=== PATIENT | male | born 1950 | race Caucasian/White ===

== ENCOUNTER 2018-09-12 13:44 | Observation (INO) | payer MEDICARE ==
--- NOTE | 2018-09-12 14:43 | ER Document Report ---
ED Medical Screen (RME) - General Chief Complaint: Rectal Bleeding Stated Complaint: ABNORMAL BOWEL MOVEMENTS Time Seen by Provider: 09/12/18 14:25 Notes: Patient is a 67-year-old male presents to the emergency department for 3 episodes of bright red blood from his rectum. Patient states he is never had this issue before. States he typically drinks 4 beers a day. Patient is denying any abdominal pain, lightheadedness, weakness, dizziness. GENERAL: Alert, interacts well. No acute distress. ABDOMEN: Soft, non-tender. Non-distended. Bowel sounds present in all 4 quadrants. I have greeted and performed a rapid initial assessment of this patient. A comprehensive ED assessment and evaluation of the patient, analysis of test results and completion of the medical decision making process will be conducted by additional ED providers. This medical record was dictated with voice recognizing software. There may be grammatical, syntax errors that are unintended. TRAVEL OUTSIDE OF THE [place] IN LAST 30 DAYS: No - Related Data Allergies/Adverse Reactions: Penicillins Allergy (Verified 09/12/18 14:19) Past Medical History - Social History Frequency of alcohol use: 4 beers per daily Drug Abuse: None Renal/ Medical History: Denies: Hx Peritoneal Dialysis Physical Exam - Vital signs Vitals: Temp Pulse Resp BP Pulse Ox 97.6 F 98 16 137/88 H 97 09/12/18 13:56 09/12/18 13:56 09/12/18 13:56 09/12/18 13:56 09/12/18 13:56 Course - Vital Signs Vital signs: Temp Pulse Resp BP Pulse Ox 97.6 F 98 16 137/88 H 97 09/12/18 13:56 09/12/18 13:56 09/12/18 13:56 09/12/18 13:56 09/12/18 13:56
[2018-09-12 16:21] LABS: ABSOLUTE EOSINOPHILS # (AUTO) 0.1 10^3/uL (0.0-0.6); ABSOLUTE LYMPHOCYTES (AUTO) 1.4 10^3/uL (0.5-4.7); ABSOLUTE MONOCYTES (AUTO) 0.8 10^3/uL (0.1-1.4); ABSOLUTE NEUT (AUTO) 6.1 10^3/uL (1.7-8.2); BASOPHILS % (AUTO) 0.5 % (0-2); EOSINOPHILS % (AUTO) 1.5 % (0-6); HEMATOCRIT 36.7 % (37.9-51.0); HEMOGLOBIN 12.5 g/dL (13.5-17.0); LYMPHOCYTES % (AUTO) 16.9 % (13-45); MEAN CORPUSCULAR HEMOGLOBIN 30.4 pg (27.0-33.4); MEAN CORPUSCULAR HGB CONC 33.9 g/dL (32.0-36.0); MEAN CORPUSCULAR VOLUME 90 fl (80-97); MONOCYTES % (AUTO) 9.4 % (3-13); PLATELET COUNT 224 10^3/uL (150-450); RED BLOOD COUNT 4.09 10^6/uL (4.35-5.55); RED CELL DISTRIBUTION WIDTH 13.6 % (11.5-14.0); SEGMENTED NEUTROPHILS % (AUTO) 71.7 % (42-78); TOTAL CELLS COUNTED % (AUTO) 100 %; WHITE BLOOD COUNT 8.6 10^3/uL (4.0-10.5)
[2018-09-12 16:24] LABS: PROTHROMBIN TIME 13.7 SEC (11.4-15.4)
[2018-09-12 16:25] LABS: PARTIAL THROMBOPLASTIN TIME 27.9 SEC (23.5-35.8)
[2018-09-12 16:40] LABS: ALANINE AMINOTRANSFERASE 20 U/L (21-72); ALBUMIN 4.1 g/dL (3.5-5.0); ALKALINE PHOSPHATASE 87 U/L (38-126); ANION GAP 8 (5-19); ASPARTATE AMINO TRANSFERASE 21 U/L (17-59); BILIRUBIN,DIRECT 0.3 mg/dL (0.0-0.4); BILIRUBIN,TOTAL 0.7 mg/dL (0.2-1.3); BLOOD UREA NITROGEN 18 mg/dL (7-20); CALCIUM 9.6 mg/dL (8.4-10.2); CARBON DIOXIDE 22 mmol/L (22-30); CHLORIDE 108 mmol/L (98-107); GLUCOSE 86 mg/dL (75-110); POTASSIUM 4.2 mmol/L (3.6-5.0); TOTAL PROTEIN 6.6 g/dL (6.3-8.2)
[2018-09-12] MEDS ORDERED: IPRATROPIUM/ALBUTEROL 0.5-2.5 MG/3 ML AMPUL NEB PRN (19:22)
[2018-09-12] MEDS ORDERED: ONDANSETRON HCL INJ/PF 4 MG/2 ML SDV IV PRN (19:22)
--- NOTE | 2018-09-12 19:22 | ER Document Report ---
ED General - General Chief Complaint: Rectal Bleeding Stated Complaint: ABNORMAL BOWEL MOVEMENTS Time Seen by Provider: 09/12/18 14:25 Notes: Patient is a 67-year-old male without chronic medical problems, does not have a primary care doctor, has not completed routine health screenings who presents with bright red blood per rectum. Patient states that when he woke up this morning he had a small bloody bowel movement, did not think much of it and went to work. States that while he was at work he had several bloody bowel movements becoming increasingly large in volume. He states that these were effectively purely bright red blood without any stool mixed within the bowel movement. States he had associated abdominal cramping that was generalized and constant in nature but has somewhat abated since that time. He denies any history of GI bleed in the past. Does not take any form of anticoagulation. Nothing is been noted to improve or worsen his symptoms since onset. Last bowel movement was approximately 4 hours prior to arrival. TRAVEL OUTSIDE OF THE [place] IN LAST 30 DAYS: No - Related Data Allergies/Adverse Reactions: Penicillins Allergy (Verified 09/12/18 14:19) Past Medical History - General Information source: Patient - Social History Smoking Status: Current Every Day Smoker Frequency of alcohol use: 4 beers per daily Drug Abuse: None Family History: Reviewed & Not Pertinent Patient has suicidal ideation: No Patient has homicidal ideation: No Renal/ Medical History: Denies: Hx Peritoneal Dialysis Review of Systems - Review of Systems Notes: Constitutional: Negative for fever. HENT: Negative for sore throat. Eyes: Negative for visual changes. Cardiovascular: Negative for chest pain. Respiratory: Negative for shortness of breath. Gastrointestinal: Positive for abdominal cramping, hematochezia Genitourinary: Negative for dysuria. Musculoskeletal: Negative for back pain. Skin: Negative for rash. Neurological: Negative for headaches, weakness or numbness. 10 point ROS negative except as marked above and in HPI. Physical Exam - Vital signs Vitals: Temp Pulse Resp BP Pulse Ox 97.6 F 98 16 137/88 H 97 09/12/18 13:56 09/12/18 13:56 09/12/18 13:56 09/12/18 13:56 09/12/18 13:56 Interpretation: Normal Notes: PHYSICAL EXAMINATION: GENERAL: Well-appearing, well-nourished and in no acute distress. HEAD: Atraumatic, normocephalic. EYES: Pupils equal round and reactive to light, extraocular movements intact, sclera anicteric, conjunctiva are normal. ENT: nares patent, oropharynx clear without exudates. Moist mucous membranes. NECK: Normal range of motion, supple without lymphadenopathy LUNGS: Breath sounds clear to auscultation bilaterally and equal. No wheezes rales or rhonchi. HEART: Regular rate and rhythm without murmurs ABDOMEN: Soft, nontender, normoactive bowel sounds. No guarding, no rebound. No masses appreciated. Rectal: Bright red blood on digital rectal exam EXTREMITIES: Normal range of motion, no pitting or edema. No cyanosis. NEUROLOGICAL: No focal neurological deficits. Moves all extremities spontaneously and on command. PSYCH: Normal mood, normal affect. SKIN: Warm, Dry, normal turgor, no rashes or lesions noted. Course - Re-evaluation Re-evalutation: 09/12/18 19:17 Patient presents with bright red blood per rectum for total large volume bloody bowel movements today. On rectal exam the patient continues to have bright red blood on digital rectal examination. No melena. The patient has no focal abdominal tenderness, has not had any vomiting and no hematemesis. Does not take any form of anti-regulation but is never had a colonoscopy in the past. Does not use any form of anti-coagulation. Initial blood counts are mildly low at 12.5 although patient has no history of anemia. However given the patient does still have bright red blood on digital rectal examination I do not feel comfortable discharging him home particular given that he reports at least 5 large bloody bowel movements today and his hemoglobin may not have accommodated yet to the blood loss. Moreover the patient does not have a primary care physician, no way to truly follow-up as an outpatient. 09/12/18 19:22 I discussed with who has accepted patient to ICU. Patient has been placed on monitor. Consult placed for for colonoscopy. - Vital Signs Vital signs: Temp Pulse Resp BP Pulse Ox 97.8 F 80 16 115/78 94 09/13/18 03:54 09/12/18 21:51 09/13/18 03:00 09/13/18 02:48 09/13/18 03:00 - Laboratory Result Diagrams: 09/13/18 02:00 09/13/18 02:00 Laboratory results interpreted by me: 09/12/18 09/12/18 15:59 15:59 RBC 4.09 L Hgb 12.5 L Hct 36.7 L Chloride 108 H ALT 20 L Discharge - Discharge Clinical Impression: Hematochezia, Lightheadedness, Lower GI bleed Condition: Fair Disposition: ADMITTED INPATIENT Admitting Provider: Miguel Angel (Hospitalist) Unit Admitted: ICU
[2018-09-12 20:16] LABS: ABSOLUTE EOSINOPHILS # (AUTO) 0.2 10^3/uL (0.0-0.6); ABSOLUTE LYMPHOCYTES (AUTO) 1.8 10^3/uL (0.5-4.7); ABSOLUTE MONOCYTES (AUTO) 0.7 10^3/uL (0.1-1.4); ABSOLUTE NEUT (AUTO) 5.2 10^3/uL (1.7-8.2); BASOPHILS % (AUTO) 0.5 % (0-2); HEMOGLOBIN 11.5 g/dL (13.5-17.0); LYMPHOCYTES % (AUTO) 23.2 % (13-45); MEAN CORPUSCULAR HEMOGLOBIN 30.3 pg (27.0-33.4); MEAN CORPUSCULAR HGB CONC 33.7 g/dL (32.0-36.0); MEAN CORPUSCULAR VOLUME 90 fl (80-97); PLATELET COUNT 179 10^3/uL (150-450); RED BLOOD COUNT 3.78 10^6/uL (4.35-5.55); RED CELL DISTRIBUTION WIDTH 13.7 % (11.5-14.0); SEGMENTED NEUTROPHILS % (AUTO) 65.3 % (42-78); TOTAL CELLS COUNTED % (AUTO) 100 %
[2018-09-12] MEDS: NORMAL SALINE 1000 ML 1,000 ML IV PRN (23:36)
[2018-09-13 02:18] LABS: ABSOLUTE EOSINOPHILS # (AUTO) 0.2 10^3/uL (0.0-0.6); ABSOLUTE LYMPHOCYTES (AUTO) 1.9 10^3/uL (0.5-4.7); ABSOLUTE MONOCYTES (AUTO) 0.9 10^3/uL (0.1-1.4); ABSOLUTE NEUT (AUTO) 6.6 10^3/uL (1.7-8.2); BASOPHILS % (AUTO) 0.4 % (0-2); EOSINOPHILS % (AUTO) 1.8 % (0-6); HEMATOCRIT 31.1 % (37.9-51.0); HEMOGLOBIN 10.6 g/dL (13.5-17.0); LYMPHOCYTES % (AUTO) 19.7 % (13-45); MEAN CORPUSCULAR HEMOGLOBIN 30.4 pg (27.0-33.4); MEAN CORPUSCULAR HGB CONC 34.1 g/dL (32.0-36.0); MEAN CORPUSCULAR VOLUME 89 fl (80-97); MONOCYTES % (AUTO) 9.3 % (3-13); PLATELET COUNT 152 10^3/uL (150-450); RED BLOOD COUNT 3.48 10^6/uL (4.35-5.55); RED CELL DISTRIBUTION WIDTH 13.5 % (11.5-14.0); SEGMENTED NEUTROPHILS % (AUTO) 68.8 % (42-78); TOTAL CELLS COUNTED % (AUTO) 100 %; WHITE BLOOD COUNT 9.6 10^3/uL (4.0-10.5)
[2018-09-13 02:35] LABS: ANION GAP 9 (5-19); BLOOD UREA NITROGEN 16 mg/dL (7-20); CALCIUM 8.7 mg/dL (8.4-10.2); CARBON DIOXIDE 22 mmol/L (22-30); CHLORIDE 110 mmol/L (98-107); GLUCOSE 88 mg/dL (75-110); POTASSIUM 3.9 mmol/L (3.6-5.0); SODIUM 141.1 mmol/L (137-145)
[2018-09-13] MEDS: NORMAL SALINE 1000 ML 1,000 ML IV PRN (03:46)
--- NOTE | 2018-09-13 04:41 | PDOC H&P ---
History of Present Illness Admission Date/PCP: 09/12/18 19:29 Patient complains of: Bright red blood per rectum History of Present Illness: ANAHI MELLO JR is a 67 year old male with past medical history of tobacco dependence who presents with 3 episodes of bright red blood per rectum. Not associated with stool, unable to quantify. No previous episode no abdominal pain fever nausea or vomiting. In the emergency room is found to have anemia of 12.5 and bright red blood on exam. He receives IV fluid resuscitation and referred to the hospitalist for admission. Patient denies recent change in medication or recent significant constipation. Past Medical History Medical History: None Psychiatric Medical History: Reports: Tobacco Dependency Denies: Depression Past Surgical History Past Surgical History: Reports: None Social History Information Source: Patient Lives with: Family Smoking Status: Current Every Day Smoker Cigarettes Packs Per Day: 1 Number of Years Smokin Last Time Smoked: 09/12/18 Frequency of Alcohol Use: Heavy - 4 beers per day 12 on weekends denies withdrawal symptoms, seizure or blackout Hx Recreational Drug Use: No Drugs: None Hx Prescription Drug Abuse: No - Advance Directive Resuscitation Status: Full Code Family History Family History: COPD, Hypertension Parental Family History Reviewed: Yes Children Family History Reviewed: Yes Sibling(s) Family History Reviewed.: Yes Medication/Allergy Home Medications: No Home Medications 09/12/18 Allergies/Adverse Reactions: Penicillins Allergy (Verified 09/12/18 14:19) Review of Systems Constitutional: ABSENT: chills, fever(s), headache(s), weight gain, weight loss Eyes: ABSENT: visual disturbances Ears: ABSENT: hearing changes Cardiovascular: ABSENT: chest pain, dyspnea on exertion, edema, orthropnea, palpitations Respiratory: ABSENT: cough, hemoptysis Gastrointestinal: ABSENT: abdominal pain, constipation, diarrhea, hematemesis, hematochezia, nausea, vomiting Genitourinary: ABSENT: dysuria, hematuria Musculoskeletal: ABSENT: joint swelling Integumentary: ABSENT: rash, wounds Neurological: ABSENT: abnormal gait, abnormal speech, confusion, dizziness, focal weakness, syncope Psychiatric: ABSENT: anxiety, depression, homidical ideation, suicidal ideation Endocrine: ABSENT: cold intolerance, heat intolerance, polydipsia, polyuria Hematologic/Lymphatic: ABSENT: easy bleeding, easy bruising Physical Exam Vital Signs: Temp Pulse Resp BP Pulse Ox 97.8 F 80 16 115/78 94 09/13/18 03:54 09/12/18 21:51 09/13/18 03:00 09/13/18 02:48 09/13/18 03:00 Intake & Output 09/11/18 09/12/18 09/13/18 11:59 11:59 11:59 Intake Total 833 Output Total 0 Balance 833 Weight 86.1 kg General appearance: PRESENT: no acute distress, well-developed, well-nourished Head exam: PRESENT: atraumatic, normocephalic Eye exam: PRESENT: conjunctiva pink, EOMI, PERRLA. ABSENT: scleral icterus Ear exam: PRESENT: normal external ear exam Mouth exam: PRESENT: moist, tongue midline Neck exam: ABSENT: carotid bruit, JVD, lymphadenopathy, thyromegaly Respiratory exam: PRESENT: clear to auscultation amy. ABSENT: rales, rhonchi, wheezes Cardiovascular exam: PRESENT: RRR. ABSENT: diastolic murmur, rubs, systolic murmur Pulses: PRESENT: normal dorsalis pedis pul Vascular exam: PRESENT: normal capillary refill GI/Abdominal exam: PRESENT: normal bowel sounds, soft. ABSENT: distended, guarding, mass, organolmegaly, rebound, tenderness Rectal exam: PRESENT: deferred Extremities exam: PRESENT: full ROM. ABSENT: calf tenderness, clubbing, pedal edema Neurological exam: PRESENT: alert, awake, oriented to person, oriented to place, oriented to time, oriented to situation, CN II-XII grossly intact. ABSENT: motor sensory deficit Psychiatric exam: PRESENT: appropriate affect, normal mood. ABSENT: homicidal ideation, suicidal ideation Skin exam: PRESENT: dry, intact, warm. ABSENT: cyanosis, rash Results Laboratory Results: 09/13/18 02:00 09/13/18 02:00 09/12/18 09/12/18 09/12/18 15:59 15:59 20:05 WBC 8.6 8.0 RBC 4.09 L 3.78 L Hgb 12.5 L 11.5 L Hct 36.7 L 34.0 L MCV 90 90 MCH 30.4 30.3 MCHC 33.9 33.7 RDW 13.6 13.7 Plt Count 224 179 Seg Neutrophils % 71.7 65.3 Lymphocytes % 16.9 23.2 Monocytes % 9.4 9.0 Eosinophils % 1.5 2.0 Basophils % 0.5 0.5 Absolute Neutrophils 6.1 5.2 Absolute Lymphocytes 1.4 1.8 Absolute Monocytes 0.8 0.7 Absolute Eosinophils 0.1 0.2 Absolute Basophils 0.0 0.0 Sodium 138.0 Potassium 4.2 Chloride 108 H Carbon Dioxide 22 Anion Gap 8 BUN 18 Creatinine 0.67 Est GFR ( Amer) > 60 Est GFR (Non-Af Amer) > 60 Glucose 86 Calcium 9.6 Total Bilirubin 0.7 AST 21 ALT 20 L Alkaline Phosphatase 87 Total Protein 6.6 Albumin 4.1 Blood Type Antibody Screen 09/12/18 09/13/18 09/13/18 20:05 02:00 02:00 WBC 9.6 RBC 3.48 L Hgb 10.6 L Hct 31.1 L MCV 89 MCH 30.4 MCHC 34.1 RDW 13.5 Plt Count 152 Seg Neutrophils % 68.8 Lymphocytes % 19.7 Monocytes % 9.3 Eosinophils % 1.8 Basophils % 0.4 Absolute Neutrophils 6.6 Absolute Lymphocytes 1.9 Absolute Monocytes 0.9 Absolute Eosinophils 0.2 Absolute Basophils 0.0 Sodium 141.1 Potassium 3.9 Chloride 110 H Carbon Dioxide 22 Anion Gap 9 BUN 16 Creatinine 0.70 Est GFR ( Amer) > 60 Est GFR (Non-Af Amer) > 60 Glucose 88 Calcium 8.7 Total Bilirubin AST ALT Alkaline Phosphatase Total Protein Albumin Blood Type O POSITIVE Antibody Screen NEGATIVE Assessment and Plan - Diagnosis (1) Lower GI bleed Is this a current diagnosis for this admission?: Yes Plan: Likely diverticular bleed. ICU admission, follow-up CBC every 6 hours and surgical consult. Transfuse PRN hemoglobin less than 8 (2) Anemia Is this a current diagnosis for this admission?: Yes Plan: Secondary to acute GI bleed. Complicated by tobacco endoscopy indicated, follow-up anemia labs for iron deficiency. (3) Tobacco abuse Is this a current diagnosis for this admission?: Yes Plan: Tobacco Dependence patient received tobacco cessation counseling and offered nicotine replacement options (4) Alcohol dependence Is this a current diagnosis for this admission?: Yes Plan: Thiamine and folate, PRN Ativan - Time Time Spent with patient: 25-34 minutes - Inpatient Certification Medical Necessity: Need Close Monitoring Due to Risk of Patient Decompensation
[2018-09-13 05:18] LABS: ABSOLUTE RETICS # 0.048 10^6/uL (0.028-0.122); RETICULOCYTE COUNT (AUTO) 1.37 % (0.66-2.85)
[2018-09-13 06:37] LABS: FOLATE > 20.00 ng/mL (>2.76)
[2018-09-13 09:10] LABS: ABSOLUTE EOSINOPHILS # (AUTO) 0.1 10^3/uL (0.0-0.6); ABSOLUTE LYMPHOCYTES (AUTO) 1.1 10^3/uL (0.5-4.7); ABSOLUTE MONOCYTES (AUTO) 0.5 10^3/uL (0.1-1.4); ABSOLUTE NEUT (AUTO) 4.6 10^3/uL (1.7-8.2); BASOPHILS % (AUTO) 0.6 % (0-2); EOSINOPHILS % (AUTO) 1.7 % (0-6); HEMATOCRIT 29.7 % (37.9-51.0); HEMOGLOBIN 10.2 g/dL (13.5-17.0); LYMPHOCYTES % (AUTO) 17.2 % (13-45); MEAN CORPUSCULAR HEMOGLOBIN 30.8 pg (27.0-33.4); MEAN CORPUSCULAR HGB CONC 34.4 g/dL (32.0-36.0); MEAN CORPUSCULAR VOLUME 90 fl (80-97); MONOCYTES % (AUTO) 7.9 % (3-13); PLATELET COUNT 163 10^3/uL (150-450); RED BLOOD COUNT 3.31 10^6/uL (4.35-5.55); RED CELL DISTRIBUTION WIDTH 13.7 % (11.5-14.0); SEGMENTED NEUTROPHILS % (AUTO) 72.6 % (42-78); TOTAL CELLS COUNTED % (AUTO) 100 %; WHITE BLOOD COUNT 6.3 10^3/uL (4.0-10.5)
--- NOTE | 2018-09-13 09:29 | PDOC CONSULTATION ---
Consultation Consult Date: 09/13/18 Consult reason:: Lower GI bleed History of Present Illness Admission Date/PCP: 09/12/18 19:29 History of Present Illness: ANAHI MELLO JR is a 67 year old male who had 3 episodes of hematochezia yesterday, Denies nausea,vomitng, chills,fever nor dysuria. He did have some pains but now has subsided. Went to ED last night. HB initially was 12.5 and now 10.6. No further BM since admission. Never had previous GI bleed in the past. No previous colonoscopy. Past Medical History Psychiatric Medical History: Reports: Tobacco Dependency Denies: Depression Past Surgical History Past Surgical History: Reports: None Social History Lives with: Family Smoking Status: Current Every Day Smoker Cigarettes Packs Per Day: 1 Number of Years Smokin Last Time Smoked: 09/12/18 Frequency of Alcohol Use: Heavy - 4 beers per day 12 on weekends denies withdrawal symptoms, seizure or blackout Hx Recreational Drug Use: No Drugs: None Hx Prescription Drug Abuse: No - Advance Directive Resuscitation Status: Full Code Family History Family History: COPD, Hypertension Parental Family History Reviewed: Yes Children Family History Reviewed: No Sibling(s) Family History Reviewed.: Yes - A brother diagnosed with lymphoma Medication/Allergy Home Medications: No Home Medications 09/12/18 Allergies/Adverse Reactions: Penicillins Allergy (Verified 09/12/18 14:19) Review of Systems Constitutional: PRESENT: as per HPI Eyes: PRESENT: other - no visual/hearing changes Nose, Mouth, and Throat: PRESENT: other - no headache Cardiovascular: PRESENT: other - no chest pains/cough Gastrointestinal: PRESENT: abdominal pain, hematochezia Physical Exam Vital Signs: Temp Pulse Resp BP Pulse Ox 98.3 F 83 15 123/76 97 09/13/18 08:00 09/13/18 08:02 09/13/18 08:02 09/13/18 08:00 09/13/18 08:02 Intake & Output 09/12/18 09/13/18 09/14/18 06:59 06:59 06:59 Intake Total 833 Output Total 600 0 Balance 233 0 Weight 86.1 kg General appearance: PRESENT: no acute distress Head exam: PRESENT: atraumatic Eye exam: PRESENT: conjunctiva pink Mouth exam: PRESENT: moist Neck exam: PRESENT: full ROM Respiratory exam: PRESENT: clear to auscultation amy Cardiovascular exam: PRESENT: RRR Pulses: PRESENT: normal radial pulses Vascular exam: PRESENT: normal capillary refill GI/Abdominal exam: PRESENT: soft - non tender Rectal exam: PRESENT: deferred Extremities exam: PRESENT: full ROM Neurological exam: PRESENT: alert, oriented to person, oriented to place, oriented to time, oriented to situation Psychiatric exam: PRESENT: appropriate affect Skin exam: PRESENT: normal color, warm Results Laboratory Results: 09/13/18 02:00 09/12/18 09/12/18 09/12/18 15:59 15:59 20:05 WBC 8.6 8.0 RBC 4.09 L 3.78 L Hgb 12.5 L 11.5 L Hct 36.7 L 34.0 L MCV 90 90 MCH 30.4 30.3 MCHC 33.9 33.7 RDW 13.6 13.7 Plt Count 224 179 Seg Neutrophils % 71.7 65.3 Lymphocytes % 16.9 23.2 Monocytes % 9.4 9.0 Eosinophils % 1.5 2.0 Basophils % 0.5 0.5 Absolute Neutrophils 6.1 5.2 Absolute Lymphocytes 1.4 1.8 Absolute Monocytes 0.8 0.7 Absolute Eosinophils 0.1 0.2 Absolute Basophils 0.0 0.0 Retic Count (auto) Absolute Retic Sodium 138.0 Potassium 4.2 Chloride 108 H Carbon Dioxide 22 Anion Gap 8 BUN 18 Creatinine 0.67 Est GFR ( Amer) > 60 Est GFR (Non-Af Amer) > 60 Glucose 86 Calcium 9.6 Iron TIBC % Saturation Ferritin Total Bilirubin 0.7 AST 21 ALT 20 L Alkaline Phosphatase 87 Total Protein 6.6 Albumin 4.1 Vitamin B12 Folate Blood Type Antibody Screen 09/12/18 09/13/18 09/13/18 20:05 02:00 02:00 WBC 9.6 RBC 3.48 L Hgb 10.6 L Hct 31.1 L MCV 89 MCH 30.4 MCHC 34.1 RDW 13.5 Plt Count 152 Seg Neutrophils % 68.8 Lymphocytes % 19.7 Monocytes % 9.3 Eosinophils % 1.8 Basophils % 0.4 Absolute Neutrophils 6.6 Absolute Lymphocytes 1.9 Absolute Monocytes 0.9 Absolute Eosinophils 0.2 Absolute Basophils 0.0 Retic Count (auto) Absolute Retic Sodium 141.1 Potassium 3.9 Chloride 110 H Carbon Dioxide 22 Anion Gap 9 BUN 16 Creatinine 0.70 Est GFR ( Amer) > 60 Est GFR (Non-Af Amer) > 60 Glucose 88 Calcium 8.7 Iron TIBC % Saturation Ferritin Total Bilirubin AST ALT Alkaline Phosphatase Total Protein Albumin Vitamin B12 Folate Blood Type O POSITIVE Antibody Screen NEGATIVE 09/13/18 09/13/18 02:00 02:00 WBC RBC Hgb Hct MCV MCH MCHC RDW Plt Count Seg Neutrophils % Lymphocytes % Monocytes % Eosinophils % Basophils % Absolute Neutrophils Absolute Lymphocytes Absolute Monocytes Absolute Eosinophils Absolute Basophils Retic Count (auto) 1.37 Absolute Retic 0.048 Sodium Potassium Chloride Carbon Dioxide Anion Gap BUN Creatinine Est GFR ( Amer) Est GFR (Non-Af Amer) Glucose Calcium Iron 108.0 TIBC 373 % Saturation 29 Ferritin 10.50 L Total Bilirubin AST ALT Alkaline Phosphatase Total Protein Albumin Vitamin B12 184.0 L Folate > 20.00 Blood Type Antibody Screen Assessment & Plan - Diagnosis (1) Alcohol dependence Is this a current diagnosis for this admission?: Yes (2) Lower GI bleed Is this a current diagnosis for this admission?: Yes (3) Tobacco abuse Is this a current diagnosis for this admission?: Yes - Time Time Spent: 30 to 50 Minutes - Inpatient Certification Medical Necessity: Need Close Monitoring Due to Risk of Patient Decompensation, Need For IV Fluids, Need For Continuous Telemetry Monitoring, Risk of Complication if Not Cared For in Hospital - Plan Summary Plan Summary: Appears to have stopped bleeding Will place on bowel prep prior to colonoscopy
--- NOTE | 2018-09-13 10:00 | PDOC PROGRESS REPORT ---
Subjective Progress Note for:: 09/13/18 Subjective:: Patient is seen resting in bed. He is awake, alert and oriented x3. He denies chest pain, shortness of breath or dyspnea. He denies nausea, vomiting or abdominal pain. He denies any lightheaded or dizziness. He has had no further rectal bleeding. He states he is hungry. He denies any significant arthralgias or myalgias. Remaining review of systems are negative. Reason For Visit: LOWER GI BLEED Physical Exam Vital Signs: Temp Pulse Resp BP Pulse Ox 98.3 F 83 15 123/76 97 09/13/18 08:00 09/13/18 08:02 09/13/18 08:02 09/13/18 08:00 09/13/18 08:02 Intake & Output 09/12/18 09/13/18 09/14/18 06:59 06:59 06:59 Intake Total 833 Output Total 600 0 Balance 233 0 Weight 86.1 kg General appearance: PRESENT: no acute distress, well-developed, well-nourished Head exam: PRESENT: atraumatic, normocephalic Eye exam: PRESENT: conjunctiva pink, EOMI, PERRLA. ABSENT: scleral icterus Ear exam: PRESENT: normal external ear exam Mouth exam: PRESENT: moist, tongue midline Neck exam: ABSENT: carotid bruit, JVD, lymphadenopathy, thyromegaly Respiratory exam: PRESENT: clear to auscultation amy. ABSENT: rales, rhonchi, wheezes Cardiovascular exam: PRESENT: RRR. ABSENT: diastolic murmur, rubs, systolic murmur Pulses: PRESENT: normal dorsalis pedis pul Vascular exam: PRESENT: normal capillary refill GI/Abdominal exam: PRESENT: normal bowel sounds, soft. ABSENT: distended, guarding, mass, organolmegaly, rebound, tenderness Rectal exam: PRESENT: deferred Extremities exam: PRESENT: full ROM. ABSENT: calf tenderness, clubbing, pedal edema Neurological exam: PRESENT: alert, awake, oriented to person, oriented to place, oriented to time, oriented to situation, CN II-XII grossly intact. ABSENT: motor sensory deficit Psychiatric exam: PRESENT: appropriate affect, normal mood. ABSENT: homicidal ideation, suicidal ideation Skin exam: PRESENT: dry, intact, warm. ABSENT: cyanosis, rash Results Laboratory Results: 09/13/18 08:48 09/13/18 02:00 09/12/18 09/12/18 09/12/18 15:59 15:59 20:05 WBC 8.6 8.0 RBC 4.09 L 3.78 L Hgb 12.5 L 11.5 L Hct 36.7 L 34.0 L MCV 90 90 MCH 30.4 30.3 MCHC 33.9 33.7 RDW 13.6 13.7 Plt Count 224 179 Seg Neutrophils % 71.7 65.3 Lymphocytes % 16.9 23.2 Monocytes % 9.4 9.0 Eosinophils % 1.5 2.0 Basophils % 0.5 0.5 Absolute Neutrophils 6.1 5.2 Absolute Lymphocytes 1.4 1.8 Absolute Monocytes 0.8 0.7 Absolute Eosinophils 0.1 0.2 Absolute Basophils 0.0 0.0 Retic Count (auto) Absolute Retic Sodium 138.0 Potassium 4.2 Chloride 108 H Carbon Dioxide 22 Anion Gap 8 BUN 18 Creatinine 0.67 Est GFR ( Amer) > 60 Est GFR (Non-Af Amer) > 60 Glucose 86 Calcium 9.6 Iron TIBC % Saturation Ferritin Total Bilirubin 0.7 AST 21 ALT 20 L Alkaline Phosphatase 87 Total Protein 6.6 Albumin 4.1 Vitamin B12 Folate Blood Type Antibody Screen 09/12/18 09/13/18 09/13/18 20:05 02:00 02:00 WBC 9.6 RBC 3.48 L Hgb 10.6 L Hct 31.1 L MCV 89 MCH 30.4 MCHC 34.1 RDW 13.5 Plt Count 152 Seg Neutrophils % 68.8 Lymphocytes % 19.7 Monocytes % 9.3 Eosinophils % 1.8 Basophils % 0.4 Absolute Neutrophils 6.6 Absolute Lymphocytes 1.9 Absolute Monocytes 0.9 Absolute Eosinophils 0.2 Absolute Basophils 0.0 Retic Count (auto) Absolute Retic Sodium 141.1 Potassium 3.9 Chloride 110 H Carbon Dioxide 22 Anion Gap 9 BUN 16 Creatinine 0.70 Est GFR ( Amer) > 60 Est GFR (Non-Af Amer) > 60 Glucose 88 Calcium 8.7 Iron TIBC % Saturation Ferritin Total Bilirubin AST ALT Alkaline Phosphatase Total Protein Albumin Vitamin B12 Folate Blood Type O POSITIVE Antibody Screen NEGATIVE 09/13/18 09/13/18 09/13/18 02:00 02:00 08:48 WBC 6.3 RBC 3.31 L Hgb 10.2 L Hct 29.7 L MCV 90 MCH 30.8 MCHC 34.4 RDW 13.7 Plt Count 163 Seg Neutrophils % 72.6 Lymphocytes % 17.2 Monocytes % 7.9 Eosinophils % 1.7 Basophils % 0.6 Absolute Neutrophils 4.6 Absolute Lymphocytes 1.1 Absolute Monocytes 0.5 Absolute Eosinophils 0.1 Absolute Basophils 0.0 Retic Count (auto) 1.37 Absolute Retic 0.048 Sodium Potassium Chloride Carbon Dioxide Anion Gap BUN Creatinine Est GFR ( Amer) Est GFR (Non-Af Amer) Glucose Calcium Iron 108.0 TIBC 373 % Saturation 29 Ferritin 10.50 L Total Bilirubin AST ALT Alkaline Phosphatase Total Protein Albumin Vitamin B12 184.0 L Folate > 20.00 Blood Type Antibody Screen Assessment and Plan - Diagnosis (1) Acute blood loss anemia Is this a current diagnosis for this admission?: Yes Plan: Hemoglobin was 12.5 on admission and is down to 10.2 at the present time. He has had no further bleeding. He has been seen by surgery. Surgery is okay for him to start clear liquids later today. (2) Hematochezia Is this a current diagnosis for this admission?: Yes Plan: He has had no further bleeding. (3) Lower GI bleed Is this a current diagnosis for this admission?: Yes Plan: Likely diverticular bleed. ICU admission, follow-up CBC every 6 hours and surgical consult. Transfuse PRN hemoglobin less than 8 (4) Tobacco abuse Is this a current diagnosis for this admission?: Yes Plan: Tobacco Dependence patient received tobacco cessation counseling and offered nicotine replacement options (5) Alcohol dependence Is this a current diagnosis for this admission?: Yes Plan: Thiamine and folate, PRN Ativan - Time Time Spent with patient: 25-34 minutes Total Critical Time (Minutes): 30 Smoking Cessation Education: 3 to 10 minutes Medications reviewed and adjusted accordingly: Yes - Inpatient Certification Based on my medical assessment, after consideration of the patient's comorbidities, presenting symptoms, or acuity I expect that the services needed warrant INPATIENT care.: Yes I certify that my determination is in accordance with my understanding of Medicare's requirements for reasonable and necessary INPATIENT services [42 CFR 412.3e].: Yes Medical Necessity: Need For IV Fluids, Risk of Complication if Not Cared For in Hospital
[2018-09-13] MEDS: PANTOPRAZOLE SODIUM 40 MG VIAL IV SCH ×2 (10:54→21:56)
[2018-09-13] MEDS: FOLIC ACID 1 MG TABLET PO SCH (10:54)
[2018-09-13] MEDS: THIAMINE HCL 100 MG TABLET PO SCH (10:54)
[2018-09-13 14:21] LABS: ABSOLUTE EOSINOPHILS # (AUTO) 0.1 10^3/uL (0.0-0.6); ABSOLUTE LYMPHOCYTES (AUTO) 1.3 10^3/uL (0.5-4.7); ABSOLUTE MONOCYTES (AUTO) 0.8 10^3/uL (0.1-1.4); ABSOLUTE NEUT (AUTO) 5.4 10^3/uL (1.7-8.2); BASOPHILS % (AUTO) 0.4 % (0-2); EOSINOPHILS % (AUTO) 1.8 % (0-6); HEMATOCRIT 31.9 % (37.9-51.0); HEMOGLOBIN 10.9 g/dL (13.5-17.0); MEAN CORPUSCULAR HEMOGLOBIN 30.6 pg (27.0-33.4); MEAN CORPUSCULAR HGB CONC 34.2 g/dL (32.0-36.0); MEAN CORPUSCULAR VOLUME 90 fl (80-97); MONOCYTES % (AUTO) 10.1 % (3-13); PLATELET COUNT 173 10^3/uL (150-450); RED BLOOD COUNT 3.57 10^6/uL (4.35-5.55); RED CELL DISTRIBUTION WIDTH 13.9 % (11.5-14.0); SEGMENTED NEUTROPHILS % (AUTO) 70.7 % (42-78); TOTAL CELLS COUNTED % (AUTO) 100 %; WHITE BLOOD COUNT 7.7 10^3/uL (4.0-10.5)
[2018-09-13] MEDS ORDERED: PEG 3350/NA SULF,BICARB,CL/KCL 4000 ML PO ONE (16:00)
[2018-09-14 03:36] LABS: ABSOLUTE EOSINOPHILS # (AUTO) 0.2 10^3/uL (0.0-0.6); ABSOLUTE LYMPHOCYTES (AUTO) 1.6 10^3/uL (0.5-4.7); ABSOLUTE MONOCYTES (AUTO) 0.8 10^3/uL (0.1-1.4); ABSOLUTE NEUT (AUTO) 4.9 10^3/uL (1.7-8.2); BASOPHILS % (AUTO) 0.6 % (0-2); EOSINOPHILS % (AUTO) 2.3 % (0-6); HEMATOCRIT 30.7 % (37.9-51.0); HEMOGLOBIN 10.6 g/dL (13.5-17.0); LYMPHOCYTES % (AUTO) 21.6 % (13-45); MEAN CORPUSCULAR HEMOGLOBIN 31.2 pg (27.0-33.4); MEAN CORPUSCULAR HGB CONC 34.7 g/dL (32.0-36.0); MEAN CORPUSCULAR VOLUME 90 fl (80-97); MONOCYTES % (AUTO) 10.5 % (3-13); PLATELET COUNT 160 10^3/uL (150-450); RED BLOOD COUNT 3.41 10^6/uL (4.35-5.55); RED CELL DISTRIBUTION WIDTH 13.6 % (11.5-14.0); TOTAL CELLS COUNTED % (AUTO) 100 %; WHITE BLOOD COUNT 7.5 10^3/uL (4.0-10.5)
[2018-09-14] MEDS: THIAMINE HCL 100 MG TABLET PO SCH (11:58)
[2018-09-14] MEDS: FOLIC ACID 1 MG TABLET PO SCH (11:58)
[2018-09-14] MEDS: PANTOPRAZOLE SODIUM 40 MG VIAL IV SCH ×2 (12:36→21:20)
[2018-09-14] MEDS ORDERED: ONDANSETRON HCL INJ/PF 4 MG/2 ML SDV ONE (12:48)
[2018-09-14] MEDS ORDERED: DIPHENHYDRAMINE HCL 50 MG/ML VIAL ONE (12:48)
[2018-09-14] MEDS ORDERED: FLUMAZENIL INJ 0.5 MG/5 ML VIAL ONE (12:49)
[2018-09-14] MEDS ORDERED: EPINEPHRINE INJ 1 MG/10 ML DISP.SYRIN ONE (12:49)
[2018-09-14] MEDS ORDERED: GLUCAGON,HUMAN RECOMB 1 MG INJ ONE (12:49)
[2018-09-14] MEDS ORDERED: NALOXONE HCL INJ/PF 0.4 MG/1 ML SDV ONE (12:49)
[2018-09-14] MEDS: FENTANYL CITRATE INJ/PF 100 MCG/2 ML AMPUL ONE ×2 (13:24→13:28)
[2018-09-14] MEDS: MIDAZOLAM 2 MG/2 ML INJ ONE ×3 (13:26→13:42)
--- NOTE | 2018-09-14 14:30 | Operative Report ---
Nonrecallable Operative Report DATE OF SURGERY: 09/14/18 PREOPERATIVE DIAGNOSIS: lower gi bleeding POSTOPERATIVE DIAGNOSIS: large tubular adenomatous mass at 35-40cm. oozing. OPERATION: colonoscopy and biopsy of tubular adenomatous mass and control of bleeding SURGEON: CHON BRODERICK 1ST APPLIANCE FIXER: JAYANT WALTON ANESTHESIA: Moderate Sedation TISSUE REMOVED OR ALTERED: ademomatous mass at 35-40 cm COMPLICATIONS: none ESTIMATED BLOOD LOSS: 10cc. PROCEDURE: see dictation
--- NOTE | 2018-09-14 15:35 | RADIOLOGY REPORT (SQ) ---
EXAM DESCRIPTION: CHEST SINGLE VIEW COMPLETED DATE/TIME: 09/14/2018 3:18 pm REASON FOR STUDY: Upright chest / Post Colonoscopy COMPARISON: None. EXAM PARAMETERS: NUMBER OF VIEWS: One view. TECHNIQUE: Single frontal radiographic view of the chest acquired. RADIATION DOSE: NA LIMITATIONS: None. FINDINGS: LUNGS AND PLEURA: There is heterogeneous opacity about the lateral left lung base. MEDIASTINUM AND HILAR STRUCTURES: No masses. Contour normal. HEART AND VASCULAR STRUCTURES: Cardiomegaly. BONES: No acute findings. HARDWARE: None in the chest. OTHER: No other significant finding. IMPRESSION: Heterogeneous opacity about the lateral left lung base, which may reflect airspace disea se or loculated pleural fluid. Recommend comparison to prior examinations to establish stability or radiographic follow-up. Cardiomegaly. TECHNICAL DOCUMENTATION: JOB ID: [id number] [employer]- All Rights Reserved Reading location - IP/workstation name: [email or web address]
--- NOTE | 2018-09-14 15:36 | RADIOLOGY REPORT (SQ) ---
EXAM DESCRIPTION: KUB/ABDOMEN (SINGLE VIEW) COMPLETED DATE/TIME: 09/14/2018 3:18 pm REASON FOR STUDY: Post Colonoscopy COMPARISON: None. NUMBER OF VIEWS: One view. TECHNIQUE: Supine radiographic image of the abdomen acquired. LIMITATIONS: None. FINDINGS: BOWEL GAS PATTERN: Gas-filled colon and distal small bowel in keeping with recent colonosc opy. No free air in the abdomen on supine radiograph. Stool is present in the left hemicolon. CALCIFICATIONS: No suspicious calcifications. SOFT TISSUES: No gross mass or suggestion of organomegaly. HARDWARE: None in the abdomen. BONES: No acute fracture. No worrisome bone lesions. OTHER: No other significant finding. IMPRESSION: Gas-filled colon and distal small bowel in keeping with recent colonoscopy. No free air in the abdomen on supine radiograph. Stool is present in the left hemicolon. TECHNICAL DOCUMENTATION: JOB ID: [id number] [employer]- All Rights Reserved Reading location - IP/workstation name: [email or web address]
--- NOTE | 2018-09-14 15:39 | PDOC PROGRESS REPORT ---
Subjective Progress Note for:: 09/14/18 Subjective:: Patient is seen resting in bed. He is awake, alert and oriented x3. He denies chest pain, shortness of breath or dyspnea. He denies nausea, vomiting or abdominal pain. He denies any lightheaded or dizziness. He has had no further rectal bleeding. He is presently NPO for colonoscopy this morning. He denies any significant arthralgias or myalgias. He has had no bleeding overnight. Remaining review of systems are negative. Reason For Visit: LOWER GI BLEED Physical Exam Vital Signs: Temp Pulse Resp BP Pulse Ox 98.4 F 68 17 137/81 H 97 09/14/18 12:00 09/14/18 14:40 09/14/18 14:40 09/14/18 14:40 09/14/18 14:40 Intake & Output 09/13/18 09/14/18 09/15/18 06:59 06:59 06:59 Intake Total 833 1360 100 Output Total 600 3850 500 Balance 233 -2490 -400 Weight 86.1 kg 84.8 kg General appearance: PRESENT: no acute distress, thin, well-developed, well- nourished Head exam: PRESENT: atraumatic, normocephalic Eye exam: PRESENT: conjunctiva pink, EOMI, PERRLA. ABSENT: scleral icterus Ear exam: PRESENT: normal external ear exam Mouth exam: PRESENT: moist, tongue midline Neck exam: ABSENT: carotid bruit, JVD, lymphadenopathy, thyromegaly Respiratory exam: PRESENT: clear to auscultation amy. ABSENT: rales, rhonchi, wheezes Cardiovascular exam: PRESENT: bradycardia Pulses: PRESENT: normal dorsalis pedis pul Vascular exam: PRESENT: normal capillary refill GI/Abdominal exam: PRESENT: normal bowel sounds, soft. ABSENT: distended, guarding, mass, organolmegaly, rebound, tenderness Rectal exam: PRESENT: deferred Extremities exam: PRESENT: full ROM. ABSENT: calf tenderness, clubbing, pedal edema Musculoskeletal exam: PRESENT: ambulatory, full ROM, normal inspection Neurological exam: PRESENT: alert, awake, oriented to person, oriented to place, oriented to time, oriented to situation, CN II-XII grossly intact. ABSENT: motor sensory deficit Psychiatric exam: PRESENT: appropriate affect, normal mood. ABSENT: homicidal ideation, suicidal ideation Skin exam: PRESENT: dry, intact, warm. ABSENT: cyanosis, rash Results Laboratory Results: 09/14/18 02:49 09/13/18 02:00 09/14/18 02:49 WBC 7.5 RBC 3.41 L Hgb 10.6 L Hct 30.7 L MCV 90 MCH 31.2 MCHC 34.7 RDW 13.6 Plt Count 160 Seg Neutrophils % 65.0 Lymphocytes % 21.6 Monocytes % 10.5 Eosinophils % 2.3 Basophils % 0.6 Absolute Neutrophils 4.9 Absolute Lymphocytes 1.6 Absolute Monocytes 0.8 Absolute Eosinophils 0.2 Absolute Basophils 0.0 Assessment and Plan - Diagnosis (1) Acute blood loss anemia Is this a current diagnosis for this admission?: Yes Plan: Hemoglobin was 12.5 on admission and is down to 10.7 at the present time. He has had no further bleeding. He is scheduled for colonoscopy today. (2) Hematochezia Is this a current diagnosis for this admission?: Yes Plan: He has had no further bleeding. (3) Lower GI bleed Is this a current diagnosis for this admission?: Yes Plan: Likely diverticular bleed. ICU admission, follow-up CBC every 6 hours and surgical consult. Transfuse PRN hemoglobin less than 8 (4) Tobacco abuse Is this a current diagnosis for this admission?: Yes Plan: Tobacco Dependence patient received tobacco cessation counseling and offered nicotine replacement options (5) Alcohol dependence Is this a current diagnosis for this admission?: Yes Plan: Thiamine and folate, PRN Ativan - Time Time Spent with patient: 15-24 minutes Total Critical Time (Minutes): 20 Smoking Cessation Education: 3 to 10 minutes Medications reviewed and adjusted accordingly: Yes Anticipated discharge: Home Within: within 24 hours - Inpatient Certification Based on my medical assessment, after consideration of the patient's comorbidities, presenting symptoms, or acuity I expect that the services needed warrant INPATIENT care.: Yes I certify that my determination is in accordance with my understanding of Medicare's requirements for reasonable and necessary INPATIENT services [42 CFR 412.3e].: Yes Medical Necessity: Other - Colonoscopy
--- NOTE | 2018-09-14 16:14 | OPERATIVE REPORT E ---
Operative Report NAME: ANAHI MELLO JR : 1950 AGE: 67Y DATE OF SURGERY: 09/14/2018 ROOM: 606 PREOPERATIVE DIAGNOSIS: LOWER GI BLEEDING. POSTOPERATIVE DIAGNOSIS: SIGMOID TUMOR. OPERATIVE PROCEDURE: Colonoscopy with biopsy of colonic tumor. SURGEON: CHON BRODERICK M.D. BLOOD BANK ASSISTANT: Geraldo Becerra M.D. INDICATION FOR OPERATION: This is a 67-year-old male who presented to the hospital with lower GI bleeding. He has a past history of tobacco dependence. He presented with 3 episodes of bright red blood per rectum. He was noted to be anemic in the Emergency Department with a hemoglobin of 12.5. He received IV fluid resuscitation and was transferred to the intensive care unit for monitoring. The following day he was scheduled for this procedure. DETAILS OF PROCEDURE: The procedure was accomplished in the intensive care unit. An appropriate timeout was obtained and site verification. The patient was given IV sedation using Versed and fentanyl. He was placed on a left lateral decubitus position. The Olympus colonoscope was then placed into the rectum and we traversed the rectum, sigmoid colon to the descending colon. The scope was then continued up the descending colon past the splenic flexure to the transverse colon, past the hepatic flexure down the ascending colon to the cecum. There was a large amount of stool in the cecum, just at the entrance to the cecum and, therefore, we could not really appreciate the [place] of the cecum. However, just proximally to that we were able to visualize well and the ascending colon appeared to be normal. As we withdrew the scope past the hepatic flexure, that was normal and past the transverse colon. All appeared to be normal without any evidence of polyps. We then traversed the splenic flexure down the descending colon until we reached about 40 cm where the junction of the descending colon and the sigmoid. There was a large polypoid mass at 40 cm and at 35 cm there was a second polypoid mass. Both of those polypoid masses were biopsied. Then the proximal polypoid mass at 40 cm was oozing. Using the electrified snare we came across the distal two-thirds of the mass in order to biopsy it and control the bleeding. This, in fact, removed a large section of the mass and did control the bleeding. The bleeding after removing the top of it ceased. We captured the resected portion of the mass in an endoscopic net and removed that and sent that to pathology. We then injected the base of the mass with epinephrine solution to ensure good hemostasis. As we went through the scope we irrigated. There was no further evidence of ooze from the base of the mass and then the scope was removed. IMPRESSION: Bleeding sigmoid mass, rule out cancer. The patient will be monitored overnight for any further bleeding and He will follow up after pathology results return. DICTATING PHYSICIAN: CHON BRODERICK M.D. [id number] PHY#: [id number] ID: [id number] JOB#: [id number] ACCT: [id number] cc:CHON BRODERICK M.D. >
--- NOTE | 2018-09-14 17:11 | EKG REPORT ---
SEVERITY:- NORMAL ECG - SINUS RHYTHM : Confirmed by: Ray Quintero MD 14-Sep-2018 17:10:30
[2018-09-15 07:56] VITALS: BP 124/65
[2018-09-15] MEDS: PANTOPRAZOLE SODIUM 40 MG VIAL IV SCH (08:59)
[2018-09-15] MEDS: FOLIC ACID 1 MG TABLET PO SCH (09:00)
[2018-09-15] MEDS: THIAMINE HCL 100 MG TABLET PO SCH (09:00)
--- NOTE | 2018-09-15 09:38 | PDOC DISCHARGE SUMMARY ---
General - Admit/Disc Date/PCP Admission Date/Primary Care Provider: 09/12/18 19:29 Discharge Date: 09/15/18 - Discharge Diagnosis (1) Acute blood loss anemia Is this a current diagnosis for this admission?: Yes (2) Hematochezia Is this a current diagnosis for this admission?: Yes (3) Lower GI bleed Is this a current diagnosis for this admission?: Yes (4) Tobacco abuse Is this a current diagnosis for this admission?: Yes (5) Alcohol dependence Is this a current diagnosis for this admission?: Yes (6) Colon adenoma Is this a current diagnosis for this admission?: Yes Summary: Patient had colonoscopy done yesterday. He was found to have a fairly large adenoma that was bleeding. Biopsy was obtained. Bleeding was injected. Post procedure he got up to use the bedside commode and had expulsion of good portion of the adenoma. This was sent to pathology as well. He will need to follow-up with Dr. Ayoub for pathology and plan of care - Additional Information Resuscitation Status: Full Code Discharge Diet: Regular Discharge Activity: Activity As Tolerated, Balance Activity w/Rest Home Medications: No Home Medications 09/12/18 History of Present Illness Patient complains of: Rectal bleeding History of Present Illness: ANAHI MELLO JR is a 67 year old male with past medical history of tobacco dependence who presents with 3 episodes of bright red blood per rectum. Not associated with stool, unable to quantify. No previous episode no abdominal pain fever nausea or vomiting. In the emergency room is found to have anemia of 12.5 and bright red blood on exam. He receives IV fluid resuscitation and referred to the hospitalist for admission. Patient denies recent change in medication or recent significant constipation. Hospital Course Hospital Course: She was admitted to CCU on the hospitalist service. Serial CBCs were obtained. He was started on IV Protonix 40 mg twice daily. Surgery was consulted for colonoscopy. Dr. alegria saw the patient in consult. Patient had drop in hemoglobin from 12.7-10.1. He did not drop any further. He had no further bleeding upon admission. He underwent colonoscopy done yesterday by Dr. Ayoub which showed an adenoma that was bleeding. This was biopsied. It was also injected and the bleeding stopped. Postprocedure he expelled a 2 cm piece of tissue from his rectum. This was sent to pathology as well. He was observed overnight for further bleeding. He had no further bleeding. This morning he feels well and wishes to be discharged. He will follow-up with Dr. Ayoub in 1 week to discuss pathology and treatment plan. Physical Exam Vital Signs: Temp Pulse Resp BP Pulse Ox 97.8 F 68 18 124/65 99 09/15/18 08:33 09/15/18 08:55 09/15/18 08:33 09/15/18 08:33 09/15/18 08:33 Intake & Output 09/14/18 09/15/18 09/16/18 06:59 06:59 06:59 Intake Total 1360 340 Output Total 3850 1000 Balance -2490 -660 Weight 84.8 kg 84.8 kg General appearance: PRESENT: no acute distress, well-developed, well-nourished Head exam: PRESENT: atraumatic, normocephalic Eye exam: PRESENT: conjunctiva pink, EOMI, PERRLA. ABSENT: scleral icterus Ear exam: PRESENT: normal external ear exam Mouth exam: PRESENT: moist, tongue midline Neck exam: ABSENT: carotid bruit, JVD, lymphadenopathy, thyromegaly Respiratory exam: PRESENT: clear to auscultation amy. ABSENT: rales, rhonchi, wheezes Cardiovascular exam: PRESENT: RRR. ABSENT: diastolic murmur, rubs, systolic murmur Pulses: PRESENT: normal dorsalis pedis pul Vascular exam: PRESENT: normal capillary refill GI/Abdominal exam: PRESENT: normal bowel sounds, soft. ABSENT: distended, guarding, mass, organolmegaly, rebound, tenderness Rectal exam: PRESENT: deferred Extremities exam: PRESENT: full ROM. ABSENT: calf tenderness, clubbing, pedal edema Neurological exam: PRESENT: alert, awake, oriented to person, oriented to place, oriented to time, oriented to situation, CN II-XII grossly intact. ABSENT: motor sensory deficit Psychiatric exam: PRESENT: appropriate affect, normal mood. ABSENT: homicidal ideation, suicidal ideation Skin exam: PRESENT: dry, intact, warm. ABSENT: cyanosis, rash Results Laboratory Results: 09/14/18 02:49 09/13/18 02:00 Impressions: Chest X-Ray 09/14/18 14:28 IMPRESSION: Heterogeneous opacity about the lateral left lung base, which may reflect airspace disease or loculated pleural fluid. Recommend comparison to prior examinations to establish stability or radiographic follow-up. Cardiomegaly. KUB X-Ray 09/14/18 14:28 IMPRESSION: Gas-filled colon and distal small bowel in keeping with recent colonoscopy. No free air in the abdomen on supine radiograph. Stool is present in the left hemicolon. Qualifiers - * PATIENT BEING DISCHARGED WITH ANY OF THE FOLLOWING DIAGNOSIS: No Plan Discharge Plan: Follow-up with Dr. Ayoub in 1 week Time Spent: Less than 30 Minutes
== END 2018-09-15 09:26 | disposition home or self-care (01) ==
LOC: ER 13:44 → INTOOBSV 19:29 → EH 19:29 → ICU 21:43 → 4N 09-15 02:04
PROVIDERS: ADMIT Internal Medicine; ATTEND Internal Medicine
PROC: HZ31ZZZ Individual Counseling for Substance Abuse Treatment, Behavioral (ICD-10-PCS; 2018-09-14)
PROC: 0DBN8ZX Excision of Sigmoid Colon, Via Natural or Artificial Opening Endoscopic, Diagnostic (ICD-10-PCS; principal; 2018-09-14 13:00)
PROC: 0DBN8ZX Excision of Sigmoid Colon, Via Natural or Artificial Opening Endoscopic, Diagnostic (ICD-10-PCS; 2018-09-14 13:00)
PROC: 3E0H8GC Introduction of Other Therapeutic Substance into Lower GI, Via Natural or Artificial Opening Endoscopic (ICD-10-PCS; 2018-09-14 13:00)
DX: D01.0 Carcinoma in situ of colon (principal); D62 Acute posthemorrhagic anemia; F10.20 Alcohol dependence, uncomplicated; F17.210 Nicotine dependence, cigarettes, uncomplicated; R00.1 Bradycardia, unspecified
CPT/HCPCS: 99285; 45380; 45385; 45381; 86900; 86901; 36415 ×3; 86850; 82607; 82728; 82746; 83540; 83550; 85025 ×3; 85610; 85730; 85045; 80048; 80053; 88305 ×2; 71045; 74018; 93005; 93010; 99406; G0378 ×3; J2250; J0171; J3010; A9270 ×2; C9113 ×2; J3490; J7030 ×2; J1200; J1610; J2310; J2405; S0164

== ENCOUNTER → 2018-09-26 | Outpatient (CLI) | payer MEDICARE ==
--- NOTE | 2018-09-26 13:43 | RADIOLOGY REPORT (SQ) ---
EXAM DESCRIPTION: CT ABD/PELVIS WITH IV ORAL COMPLETED DATE/TIME: 09/26/2018 1:07 pm REASON FOR STUDY: COLON CA (C18.9) C18.9 MALIGNANT NEOPLASM OF COLON, UNSPECIFIED COMPARISON: None. TECHNIQUE: CT scan of the abdomen and pelvis performed using helical scanning technique with dynamic intravenous contrast injection. Patient drank oral contrast. Images reviewed with lung, soft tissue , and bone windows. Reconstructed coronal and sagittal MPR images reviewed. Delayed images for evalua tion of the urinary system also acquired. All images stored on PACS. All CT scanners at this facility use dose modulation, iterative reconstruction, and/or weight based d osing when appropriate to reduce radiation dose to as low as reasonably achievable (ALARA). [facility]: Dose Right [facility]: CareDose [facility]: Dose Right [facility]: Teradose 4D [facility]: Meiyou CONTRAST TYPE AND DOSE: contrast/concentration: Isovue 350.00 mg/ml; Total Contrast Delivered: 96.0 ml; Total Saline Delivered: 63.2 ml RENAL FUNCTION: Creatinine 0.7 RADIATION DOSE: CT Rad equipment meets quality standard of care and radiation dose reduction techniq ues were employed. CTDIvol: 6.7 - 7.8 mGy. DLP: 1195 mGy-cm.. LIMITATIONS: None. FINDINGS: LOWER CHEST: No significant findings. No nodules or infiltrates. LIVER: Normal size. A 3.5 cm hemangioma is present in the posterior right lobe liver on axial image 27. subcentimeter cysts are present in the sub- diaphragmatic surface right and left lobe liver. SPLEEN: Normal size. No focal lesions. PANCREAS: No masses. No significant calcifications. No adjacent inflammation or peripancreatic fluid collections. Pancreatic duct not dilated. GALLBLADDER: No identified stones by CT criteria. No inflammatory changes to suggest cholecystitis. ADRENAL GLANDS: No significant masses or asymmetry. RIGHT KIDNEY AND URETER: No solid masses. No significant calcifications. No hydronephrosis or hyd roureter. LEFT KIDNEY AND URETER: No solid masses. No significant calcifications. No hydronephrosis or hydr oureter. AORTA AND VESSELS: No aneurysm. No dissection. Renal arteries, SMA, celiac without stenosis. RETROPERITONEUM: There is extensive retroperitoneal adenopathy in the abdomen and pelvis. This could be metastatic or could be lymphoma. Largest index lymph nodes are as follows: Left para aortic 3.5 x 3.4 cm node axial image 56 Iliac bifurcation 4 x 2 cm lymph node axial image 60 Right external iliac lymph node 4.2 x 2.9 cm on axial image 71 Right obturator lymph node 3.2 x 2.3 cm X approximately 6 Left external iliac lymph node 4.4 x 3.3 cm image 64 Left external iliac 4 x 3.3 cm axial image 75 BOWEL AND PERITONEAL CAVITY: Patient drank oral contrast. No bowel obstruction. Question retained s tool versus 2.5 cm polyp, sigmoid colon on axial images 45-50. Remainder of the gastrointestinal tra ct is otherwise unremarkable. APPENDIX: Normal. PELVIS: Pelvic adenopathy as above. No free fluid. Normal bladder. ABDOMINAL WALL: Bilateral fatty inguinal hernias BONES: No significant or acute findings. OTHER: No other significant finding. IMPRESSION: Significant retroperitoneal and pelvic adenopathy Cysts and benign hemangioma in the liver. Polypoid mass versus retained stool, sigmoid colon TECHNICAL DOCUMENTATION: JOB ID: [id number] Quality ID # [id number]: Final reports with documentation of one or more dose reduction techniques (e.g., Au tomated exposure control, adjustment of the mA and/or kV according to patient size, use of iterative reconstruction technique) 2010 [employer]- All Rights Reserved Reading location - IP/workstation name: [email or web address]
== END ==
LOC: RAD 12:23
PROVIDERS: ATTEND Surgery
DX: C18.9 Malignant neoplasm of colon, unspecified (principal)
CPT/HCPCS: 74177

== ENCOUNTER → 2018-10-08 | Outpatient (CLI) | payer MEDICARE ==
--- NOTE | 2018-10-09 11:29 | RADIOLOGY REPORT (SQ) ---
EXAM DESCRIPTION: PET CT SKULL/THIGH COMPLETED DATE/TIME: 10/09/2018 7:42 am REASON FOR STUDY: (C18.9) MALIGNANT NEOPLASM OF COLON, UNSPECIFIED C18.9 MALIGNANT NEOPLASM OF COLO N, UNSPECIFIED COMPARISON: CT abdomen pelvis dated 09/26/2018 RADIONUCLIDE AND DOSE: 12.6 mCi F18 FDG The route of agent administration: Intravenous FASTING BLOOD SUGAR: 93 mg/dl CONTRAST TYPE AND DOSE: No CT contrast given. TECHNIQUE: Blood glucose level was verified. Above dose of FDG was injected intravenously. 2-D seg mented attenuation correction images were obtained from the base of the skull to the midthighs. Nonc ontrast CT images were obtained for attenuation correction and fusion with emission images. CT image s were performed without oral or intravenous contrast and are not sensitive for parenchymal lesions. A series of overlapping emission PET images were obtained. Images reviewed and manipulated at [facility] work station by the radiologist. Images stored on PACS. LIMITATIONS: None. FINDINGS: HEAD AND NECK: No areas of abnormal metabolic activity in the soft tissues of the head and neck. CHEST: No areas of abnormal metabolic activity in the chest. ABDOMEN AND PELVIS: There is abnormal uptake in the sigmoid mass. SUV is greater than 6 consistent w ith neoplasm. There is uptake in the pelvic adenopathy. SUVs range between 3 and 4 consistent with metastatic disease. PROXIMAL LOWER EXTREMITIES: No areas of abnormal metabolic activity in the soft tissues of the lower extremities. BONES: No abnormal metabolic activity in the visualized skeleton. ADDITIONAL CT FINDINGS: No additional significant findings on the noncontrast CT images. OTHER: No other significant findings. IMPRESSION: 1. SUV in the sigmoid mass is greater than 6 consistent with neoplasm. 2. SUV ranges between 3 and 4 in the pelvic and periaortic adenopathy. TECHNICAL DOCUMENTATION: JOB ID: [id number] [employer]- All Rights Reserved Reading location - IP/workstation name: [email or web address]
== END ==
LOC: RAD 15:44
PROVIDERS: ATTEND Surgery
DX: C18.7 Malignant neoplasm of sigmoid colon (principal)
CPT/HCPCS: 78815; A9552

== ENCOUNTER 2018-11-08 06:58 | Inpatient (IN) | payer MEDICARE ==
--- NOTE | 2018-11-07 10:21 | EKG REPORT ---
SEVERITY:- NORMAL ECG - SINUS RHYTHM : Confirmed by: Jaki Zhang MD 07-Nov-2018 10:20:20
[2018-11-07 10:47] LABS: ABSOLUTE EOSINOPHILS # (AUTO) 0.2 10^3/uL (0.0-0.6); ABSOLUTE LYMPHOCYTES (AUTO) 1.3 10^3/uL (0.5-4.7); ABSOLUTE MONOCYTES (AUTO) 0.7 10^3/uL (0.1-1.4); ABSOLUTE NEUT (AUTO) 4.1 10^3/uL (1.7-8.2); BASOPHILS % (AUTO) 0.7 % (0-2); EOSINOPHILS % (AUTO) 3.1 % (0-6); HEMOGLOBIN 11.4 g/dL (13.5-17.0); LYMPHOCYTES % (AUTO) 20.9 % (13-45); MEAN CORPUSCULAR HEMOGLOBIN 27.2 pg (27.0-33.4); MEAN CORPUSCULAR HGB CONC 32.5 g/dL (32.0-36.0); MEAN CORPUSCULAR VOLUME 84 fl (80-97); MONOCYTES % (AUTO) 10.5 % (3-13); PLATELET COUNT 282 10^3/uL (150-450); RED BLOOD COUNT 4.19 10^6/uL (4.35-5.55); RED CELL DISTRIBUTION WIDTH 14.6 % (11.5-14.0); SEGMENTED NEUTROPHILS % (AUTO) 64.8 % (42-78); TOTAL CELLS COUNTED % (AUTO) 100 %; WHITE BLOOD COUNT 6.3 10^3/uL (4.0-10.5)
[2018-11-07 11:20] LABS: ANION GAP 7 (5-19); BLOOD UREA NITROGEN 17 mg/dL (7-20); CALCIUM 9.5 mg/dL (8.4-10.2); CARBON DIOXIDE 25 mmol/L (22-30); CHLORIDE 108 mmol/L (98-107); GLUCOSE 95 mg/dL (75-110); POTASSIUM 4.6 mmol/L (3.6-5.0); SODIUM 140.3 mmol/L (137-145)
[~2018-11-08 06:58] MED LIST: CEFAZOLIN 1 GM/D5W RTU 1 GM/50 ML RTUPB IV ONE; CEFAZOLIN 1 GM/D5W RTU 1 GM/50 ML RTUPB IV PRN; LACTATED RINGERS 1000 ML IV PRN; LIDOCAINE 0.5% INJ-PF (5 MG/ML) 50 ML SDV SUBCUT PRN
[2018-11-08] MEDS ORDERED: METHYLENE BLUE 50 MG/10 ML AMPULE ONE (07:56)
[2018-11-08] MEDS ORDERED: BUPIVACAINE HCL 0.25% /EPINEPHRINE INJ/PF 30 ML SDV ONE (07:56)
[2018-11-08] MEDS ORDERED: FENTANYL CITRATE INJ/PF 100 MCG/2 ML AMPUL ONE ×2 (10:22→17:59)
[2018-11-08] MEDS ORDERED: FENTANYL CITRATE INJ/PF 250 MCG/5 ML AMPULE ONE (10:22)
[2018-11-08] MEDS ORDERED: SUGAMMADEX SODIUM 200 MG/2 ML SDV IV ONE (10:23)
[2018-11-08] MEDS ORDERED: MIDAZOLAM 2 MG/2 ML INJ ONE (10:23)
[2018-11-08] MEDS ORDERED: PROPOFOL INJ 200 MG/20 ML VIAL IV ONE (10:23)
[2018-11-08] MEDS ORDERED: ONDANSETRON HCL INJ/PF 4 MG/2 ML SDV ONE (10:23)
[2018-11-08] MEDS ORDERED: DEXAMETHASONE SOD PHOSPHATE INJ 4 MG/1 ML VIAL ONE ×2 (10:23→10:31)
[2018-11-08] MEDS ORDERED: KETOROLAC TROMETHAMINE 60 MG/2 ML SDV ONE (10:31)
[2018-11-08] MEDS ORDERED: SUCCINYLCHOLINE CHLORIDE INJ 200 MG/10 ML VIAL ONE (10:31)
[2018-11-08] MEDS ORDERED: ROCURONIUM BROMIDE INJ 50 MG/5 ML VIAL IV ONE (10:31)
[2018-11-08] MEDS ORDERED: ALBUTEROL SULFATE 0.083% NEB 2.5 MG/3 ML AMPUL NEB ONE (11:03)
[2018-11-08] MEDS ORDERED: ONDANSETRON HCL INJ/PF 4 MG/2 ML SDV IV PRN ×2 (15:01→17:32)
[2018-11-08] MEDS ORDERED: DIPHENHYDRAMINE HCL 50 MG/ML VIAL IV PRN (15:01)
[2018-11-08] MEDS ORDERED: MEPERIDINE HCL/PF INJ 25 MG/1 ML DISP.SYRIN IV PRN (15:01)
[2018-11-08] MEDS ORDERED: MORPHINE SULFATE 10 MG/ML INJ IV PRN ×2 (15:01→17:32)
[2018-11-08] MEDS ORDERED: FENTANYL CITRATE INJ/PF 100 MCG/2 ML AMPUL IV PRN ×3 (15:01)
[2018-11-08] MEDS ORDERED: PROMETHAZINE HCL INJ 25 MG/1 ML VIAL IV PRN ×2 (15:01)
--- NOTE | 2018-11-08 15:52 | RADIOLOGY REPORT (SQ) ---
EXAM DESCRIPTION: FLUORO/CV PLACEMENT COMPLETED DATE/TIME: 11/08/2018 2:11 pm REASON FOR STUDY: PORTACATH PLCMT LEFT SIDE ASST WITH FLUORO IN OR C18.9 MALIGNANT NEOPLASM OF COL ON, UNSPECIFIED COMPARISON: PET-CT 10/08/2018 FLUOROSCOPY TIME: 1 minutes 3 fluoroscopic digital images saved to PACS. TECHNIQUE: Intra-operative images acquired during surgical procedure to evaluate progress. NUMBER OF IMAGES: 3 digital fluoroscopic images LIMITATIONS: None. FINDINGS: Intra procedural imaging and fluoro during placement of a left-sided permanent central amina e with the tip in the superior vena cava. Please see Dr. Ayoub's operative report for further det ails IMPRESSION: Intra procedural imaging and fluoro COMMENT: Quality ID [id number]: Final reports for procedures using fluoroscopy that document radiation exp osure indices, or exposure time and number of fluorographic images (if radiation exposure indices are not available) Please consult full operative report of the attending physician for description of the procedure. TECHNICAL DOCUMENTATION: JOB ID: [id number] [employer]- All Rights Reserved Reading location - IP/workstation name: [email or web address]
--- NOTE | 2018-11-08 17:30 | Operative Report ---
Nonrecallable Operative Report DATE OF SURGERY: 11/08/18 PREOPERATIVE DIAGNOSIS: colon cancer POSTOPERATIVE DIAGNOSIS: metastatic colon cancer OPERATION: right subclavian portacath placment,. colonoscopy. laparoscopic assisted left hemicolectomy SURGEON: CHON BRODERICK ANESTHESIA: GA TISSUE REMOVED OR ALTERED: left colon. rt iliac lymphnode COMPLICATIONS: none ESTIMATED BLOOD LOSS: 300 INTRAOPERATIVE FINDINGS: see dictatin PROCEDURE: see dictation
[2018-11-08] MEDS ORDERED: PHARMACY COMMUNICATION ORDER MC NR (17:45)
[2018-11-08] MEDS ORDERED: MORPHINE SULFATE 60 MG/60 ML RTUINJ IV PRN (17:55)
--- NOTE | 2018-11-08 18:42 | RADIOLOGY REPORT (SQ) ---
EXAM DESCRIPTION: CHEST SINGLE VIEW COMPLETED DATE/TIME: 11/08/2018 6:34 pm REASON FOR STUDY: portacath placement COMPARISON: 09/14/2013 EXAM PARAMETERS: NUMBER OF VIEWS: One view. TECHNIQUE: Single frontal radiographic view of the chest acquired. RADIATION DOSE: NA LIMITATIONS: None. FINDINGS: LUNGS AND PLEURA: No opacities, masses or pneumothorax. No pleural effusion. MEDIASTINUM AND HILAR STRUCTURES: Free air related to recent surgery. HEART AND VASCULAR STRUCTURES: Heart normal in size. Normal vasculature. BONES: No acute findings. HARDWARE: NG tube in appropriate location. Venous access catheter tip at the cavoatrial junction. OTHER: No other significant finding. IMPRESSION: New venous access catheter tip at the cavoatrial junction. Otherwise satisfactory posto perative chest radiograph. TECHNICAL DOCUMENTATION: JOB ID: [id number] [employer]- All Rights Reserved Reading location - IP/workstation name: [email or web address]
[2018-11-08] MEDS: CEFAZOLIN 1 GM/D5W RTU 1 GM/50 ML RTUPB IV SCH (20:58)
[2018-11-08] MEDS: POTASSI CL 20 MEQ/D5-1/2NS 1L 1,000 ML IV PRN (20:58)
[2018-11-08] MEDS: METRONIDAZOLE 500 MG/NS RTU 500 MG/100 ML RTUPB IV SCH ×2 (21:31→21:45)
[2018-11-08] MEDS: FAMOTIDINE INJ/PF 20 MG/2 ML SDV IV SCH (21:43)
[2018-11-08] MEDS: HEPARIN SOD (PORCINE) 5,000 UNIT/ML 1 ML SYRINGE SUBCUT SCH (21:43)
[2018-11-09] MEDS: METRONIDAZOLE 500 MG/NS RTU 500 MG/100 ML RTUPB IV SCH ×5 (03:01→21:01)
[2018-11-09] MEDS: CEFAZOLIN 1 GM/D5W RTU 1 GM/50 ML RTUPB IV SCH ×5 (03:01→21:01)
[2018-11-09 05:11] LABS: HEMATOCRIT 28.4 % (37.9-51.0); HEMOGLOBIN 9.4 g/dL (13.5-17.0); MEAN CORPUSCULAR HEMOGLOBIN 27.4 pg (27.0-33.4); MEAN CORPUSCULAR HGB CONC 32.9 g/dL (32.0-36.0); MEAN CORPUSCULAR VOLUME 83 fl (80-97); PLATELET COUNT 220 10^3/uL (150-450); RED BLOOD COUNT 3.41 10^6/uL (4.35-5.55); RED CELL DISTRIBUTION WIDTH 14.7 % (11.5-14.0)
[2018-11-09 05:17] LABS: ANION GAP 5 (5-19); BLOOD UREA NITROGEN 12 mg/dL (7-20); CALCIUM 8.4 mg/dL (8.4-10.2); CARBON DIOXIDE 24 mmol/L (22-30); CHLORIDE 109 mmol/L (98-107); GLUCOSE 142 mg/dL (75-110); POTASSIUM 4.4 mmol/L (3.6-5.0); SODIUM 137.8 mmol/L (137-145)
[2018-11-09 05:36] LABS: WHITE BLOOD COUNT 16.8 10^3/uL (4.0-10.5)
[2018-11-09 05:41] LABS: ABSOLUTE MONOCYTES # (MANUAL) 1.5 10^3/uL (0.1-1.4); BASOPHILS % (MANUAL) 0 % (0-2); EOSINOPHILS % (MANUAL) 0 % (0-6); LYMPHOCYTES % (MANUAL) 6 % (13-45); MONOCYTES % (MANUAL) 9 % (3-13); SEGMENTED NEUTROPHILS % (MAN) 85 % (42-78); TOTAL CELLS COUNTED 100
[2018-11-09 05:42] LABS: ANISOCYTOSIS SLIGHT; PLATELET COMMENT ADEQUATE
[2018-11-09] MEDS: HEPARIN SOD (PORCINE) 5,000 UNIT/ML 1 ML SYRINGE SUBCUT SCH ×3 (06:01→21:01)
[2018-11-09] MEDS: POTASSI CL 20 MEQ/D5-1/2NS 1L 1,000 ML IV PRN ×2 (06:53→14:34)
[2018-11-09] MEDS: FAMOTIDINE INJ/PF 20 MG/2 ML SDV IV SCH ×2 (09:28→21:00)
--- NOTE | 2018-11-09 12:39 | PDOC PROGRESS REPORT ---
Subjective Progress Note for:: 11/09/18 Subjective:: c/o sore throat with ng Reason For Visit: COLON CANCER Physical Exam Vital Signs: Temp Pulse Resp BP Pulse Ox 97.9 F 76 18 119/72 95 11/09/18 12:00 11/09/18 12:00 11/09/18 12:00 11/09/18 12:00 11/09/18 12:00 Intake & Output 11/08/18 11/09/18 11/10/18 06:59 06:59 06:59 Intake Total 5990 150 Output Total 1320 Balance 4670 150 Weight 83.4 kg General appearance: PRESENT: no acute distress Eye exam: PRESENT: EOMI Mouth exam: PRESENT: moist Neck exam: PRESENT: full ROM Respiratory exam: PRESENT: clear to auscultation amy Cardiovascular exam: PRESENT: RRR Pulses: PRESENT: normal radial pulses, normal femoral pulses GI/Abdominal exam: PRESENT: soft - alonzo serous Rectal exam: PRESENT: deferred Extremities exam: PRESENT: full ROM Musculoskeletal exam: PRESENT: full ROM Neurological exam: PRESENT: alert, awake, oriented to person Psychiatric exam: PRESENT: appropriate affect Skin exam: PRESENT: dry Results Laboratory Results: 11/09/18 04:50 11/09/18 04:50 11/09/18 11/09/18 04:50 04:50 WBC 16.8 H D RBC 3.41 L Hgb 9.4 L Hct 28.4 L MCV 83 MCH 27.4 MCHC 32.9 RDW 14.7 H Plt Count 220 Seg Neutrophils % Not Reportable Lymphocytes % Not Reportable Monocytes % Not Reportable Eosinophils % Not Reportable Basophils % Not Reportable Absolute Neutrophils Not Reportable Absolute Lymphocytes Not Reportable Absolute Monocytes Not Reportable Absolute Eosinophils Not Reportable Absolute Basophils Not Reportable Sodium 137.8 Potassium 4.4 Chloride 109 H Carbon Dioxide 24 Anion Gap 5 BUN 12 Creatinine 0.65 Est GFR ( Amer) > 60 Est GFR (Non-Af Amer) > 60 Glucose 142 H Calcium 8.4 Impressions: Guidance Fluoroscopy 11/08/18 00:00 IMPRESSION: Intra procedural imaging and fluoro Chest X-Ray 11/08/18 17:35 IMPRESSION: New venous access catheter tip at the cavoatrial junction. Otherwise satisfactory postoperative chest radiograph. Assessment & Plan - Plan Summary Plan Summary: s/p left heimicolectomy pod 1 s/p portacath placment and pelvic node bx doing ok pod1 will dc ng ice chips ok Popsicle ok
[2018-11-10] MEDS: POTASSI CL 20 MEQ/D5-1/2NS 1L 1,000 ML IV PRN ×3 (00:31→20:11)
[2018-11-10] MEDS: METRONIDAZOLE 500 MG/NS RTU 500 MG/100 ML RTUPB IV SCH ×4 (03:33→21:36)
[2018-11-10] MEDS: CEFAZOLIN 1 GM/D5W RTU 1 GM/50 ML RTUPB IV SCH ×4 (03:33→21:37)
[2018-11-10 05:04] LABS: ABSOLUTE EOSINOPHILS # (AUTO) 0.1 10^3/uL (0.0-0.6); ABSOLUTE LYMPHOCYTES (AUTO) 0.8 10^3/uL (0.5-4.7); ABSOLUTE MONOCYTES (AUTO) 1.1 10^3/uL (0.1-1.4); ABSOLUTE NEUT (AUTO) 8.3 10^3/uL (1.7-8.2); BASOPHILS % (AUTO) 0.3 % (0-2); EOSINOPHILS % (AUTO) 0.7 % (0-6); HEMATOCRIT 27.9 % (37.9-51.0); HEMOGLOBIN 9.2 g/dL (13.5-17.0); LYMPHOCYTES % (AUTO) 7.4 % (13-45); MEAN CORPUSCULAR HEMOGLOBIN 27.6 pg (27.0-33.4); MEAN CORPUSCULAR HGB CONC 33.1 g/dL (32.0-36.0); MEAN CORPUSCULAR VOLUME 83 fl (80-97); MONOCYTES % (AUTO) 10.8 % (3-13); PLATELET COUNT 173 10^3/uL (150-450); RED BLOOD COUNT 3.35 10^6/uL (4.35-5.55); SEGMENTED NEUTROPHILS % (AUTO) 80.8 % (42-78); TOTAL CELLS COUNTED % (AUTO) 100 %; WHITE BLOOD COUNT 10.2 10^3/uL (4.0-10.5)
[2018-11-10] MEDS: HEPARIN SOD (PORCINE) 5,000 UNIT/ML 1 ML SYRINGE SUBCUT SCH ×3 (05:16→21:37)
[2018-11-10 05:20] LABS: BLOOD UREA NITROGEN 9 mg/dL (7-20); CALCIUM 8.5 mg/dL (8.4-10.2); GLUCOSE 116 mg/dL (75-110); POTASSIUM 4.1 mmol/L (3.6-5.0)
[2018-11-10 05:25] LABS: CARBON DIOXIDE 28 mmol/L (22-30); CHLORIDE 108 mmol/L (98-107)
[2018-11-10 05:36] LABS: ANION GAP 2 (5-19)
--- NOTE | 2018-11-10 10:29 | PDOC PROGRESS REPORT ---
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, feels too sedated Reason For Visit: COLON CANCER Physical Exam Vital Signs: Temp Pulse Resp BP Pulse Ox 98.8 F 93 18 128/68 H 93 11/10/18 08:00 11/10/18 08:00 11/10/18 08:00 11/10/18 08:00 11/10/18 08:00 Intake & Output 11/09/18 11/10/18 11/11/18 06:59 06:59 06:59 Intake Total 5990 2800 50 Output Total 1320 2730 Balance 4670 70 50 Weight 83.4 kg 82.6 kg General appearance: PRESENT: no acute distress Eye exam: PRESENT: EOMI Mouth exam: PRESENT: moist Neck exam: PRESENT: full ROM Respiratory exam: PRESENT: clear to auscultation amy Cardiovascular exam: PRESENT: RRR Pulses: PRESENT: normal radial pulses, normal femoral pulses GI/Abdominal exam: PRESENT: hypoactive bowel sounds, soft Rectal exam: PRESENT: deferred Gentrourinary exam: PRESENT: indwelling catheter Extremities exam: PRESENT: full ROM Musculoskeletal exam: PRESENT: full ROM Neurological exam: PRESENT: alert, awake, oriented to person, oriented to place Psychiatric exam: PRESENT: appropriate affect Skin exam: PRESENT: dry Results Laboratory Results: 11/10/18 04:40 11/10/18 04:40 11/10/18 11/10/18 04:40 04:40 WBC 10.2 RBC 3.35 L Hgb 9.2 L Hct 27.9 L MCV 83 MCH 27.6 MCHC 33.1 RDW 15.0 H Plt Count 173 Seg Neutrophils % 80.8 H Lymphocytes % 7.4 L Monocytes % 10.8 Eosinophils % 0.7 Basophils % 0.3 Absolute Neutrophils 8.3 H Absolute Lymphocytes 0.8 Absolute Monocytes 1.1 Absolute Eosinophils 0.1 Absolute Basophils 0.0 Sodium 138.0 Potassium 4.1 Chloride 108 H Carbon Dioxide 28 Anion Gap 2 L BUN 9 Creatinine 0.73 Est GFR ( Amer) > 60 Est GFR (Non-Af Amer) > 60 Glucose 116 H Calcium 8.5 Impressions: Guidance Fluoroscopy 11/08/18 00:00 IMPRESSION: Intra procedural imaging and fluoro Chest X-Ray 11/08/18 17:35 IMPRESSION: New venous access catheter tip at the cavoatrial junction. Otherwise satisfactory postoperative chest radiograph. 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
[2018-11-10] MEDS ORDERED: KETOROLAC TROMETHAMINE INJ/PF 30 MG/1 ML SDV IV SCH (10:30)
[2018-11-10] MEDS: FAMOTIDINE INJ/PF 20 MG/2 ML SDV IV SCH ×2 (10:50→21:37)
[2018-11-10] MEDS: KETOROLAC TROMETHAMINE INJ/PF 30 MG/1 ML SDV IV PRN (11:00)
--- NOTE | 2018-11-10 16:24 | OPERATIVE REPORT E ---
Operative Report NAME: ANAHI MELLO JR : 1950 AGE: 67Y DATE OF SURGERY: 11/08/2018 ROOM: 436 PREOPERATIVE DIAGNOSIS: SIGMOID COLON CANCER. POSTOPERATIVE DIAGNOSIS: METASTATIC SIGMOID COLON CANCER. OPERATIONS: 1. Right subclavian Port-A-Cath placement. 2. Colonoscopy. 3. Laparoscopic-assisted left hemicolectomy. SURGEON: CHON BRODERICK M.D. PROCEDURE: Patient was brought to the operating room in awake, alert and stable condition, placed on the operating table in supine position, induced under general anesthesia, intubated. The chest and neck were prepped and draped in the usual sterile fashion for a Port-A-Cath placement. After appropriate site verification and timeout, a right subclavian stick was made with a 16-gauge needle. The subclavian vein was isolated and a J-wire was placed through the needle into the superior vena cava, confirmed on fluoroscopy. The needle was removed and a dilator introducer was placed over the wire into the superior vena cava. The dilator was removed. An 8-Pakistani Port-A-Cath catheter was placed into the tear-away introducer, placed into the superior vena cava and the tear-away introducer was pulled away. The catheter was heparinized with heparinized saline solution. A point was then picked on the anterior chest wall. A transverse incision was made just lateral and above the nipple. Dissection was carried down through subcutaneous tissue with Bovie cautery. A pocket was made with Bovie cautery and the PowerPort was manipulated into the pocket. The tunnel maker that was supplied with the kit was attached to the catheter and was tunneled from the subclavian stick site to the Port-A-Cath pocket. It was then attached to the Port-A-Cath, after being cut to appropriate length. Fluoroscopy confirmed good placement and position of the catheter. The catheter was then heparinized with heparinized saline solution. It withdrew and irrigated easily. The subcutaneous pocket was then closed with interrupted 3-0 Vicryl in the subcutaneous tissue and the skin was closed with 4-0 Monocryl. Steri-Strips completed the procedure. Patient was then placed in a left lateral decubitus position for colonoscopy. After the position was satisfactory, the Olympus colonoscope was utilized for the procedure. It was placed into the rectum and manipulated through the sigmoid colon, where a number of polyps were noted about 10 cm from the anal verge. There were a number of small 2 to 3 mm sessile polyps in the sigmoid colon and proximal rectum, and as we continued our visualization proximally, we noted a large pedunculated polyp that was about 2 to 3 cm in diameter, which previously was diagnosed on his colonoscopy for bleeding. Then as we progressed up the descending colon, there were a number of other polyps that were noted between the large polyp and the splenic flexure. Once we reached the splenic flexure, we did not note any further polyps. We traversed the splenic flexure into the transverse colon; that appeared to be normal, as was the hepatic flexure and down to the cecum. We then slowly withdrew the scope and reexamined all the mucosal surfaces, and there was no evidence of any polyps until we were approximately 5 cm distal to the splenic flexure. The scope was slowly withdrawn. The large pedunculated polyp was noted at about 35 to 40 cm, and then scope was slowly removed. We then prepped the patient for the laparoscopy. He was placed in a low lithotomy position and the abdomen was prepped and draped in the usual sterile fashion. A Veress needle was then utilized to pass into the umbilicus and insufflate the abdominal cavity. A 10-mm supraumbilical port was placed using a longitudinal incision and intraabdominal visualization revealed no evidence of a Veress needle or trocar injury; however, there was still some gas left in the colon and small bowel from the colonoscopy, which made visualization initially somewhat difficult. We finally were able to manipulate the small bowel proximally with the patient in Trendelenburg, and I identified the pelvis. I then turned attention to the iliac lymph nodes. There were large 4 to 5 cm iliac lymph nodes from the bifurcation of the internal/external iliac up all the way to the bifurcation of the aorta. They were quite large, probably 3 to 4 cm in diameter, on both sides. They were displacing the ureters on both sides and they were all firm. I isolated 1 large lymph node on the right side, just at the level of the internal/external bifurcation and dissected the peritoneum off of that large lymph node, and then gently mobilized it circumferentially with blunt and sharp dissection, using the LigaSure device, and eventually was able to remove it. Placed it in an Endo bag and brought it out through a 10-mm port site in the right lower quadrant that had been previously placed. We also placed a 5-mm port on the left side and another 5-mm port in the right upper quadrant. The lymph node was sent out to pathology and it was noted to be cancerous; however, the pathologist was unsure whether it was colonic cancer or a different type, and deferred final diagnosis. I therefore examined all the peritoneal surfaces, the stomach, the top of the pancreas, the liver, and noted no other evidence of any metastatic disease. We then began our mobilization of the distal rectum just below the rectosigmoid junction, and I mobilized the mesorectum down to the presacral fascia with the LigaSure device. Circumferentially came around it with the LigaSure device, identifying both the right and left ureter, and then came across the mesocolon with the LigaSure device to completely free up just the muscular surface of the rectum. We then mobilized the descending colon along the white line of Toldt with the LigaSure device all the way up to the splenic flexure, divided the inferior mesenteric artery at the level of the aorta, after controlling it with the LigaSure device. Once it was completely mobilized, I identified the transverse colon and mobilized the omentum off the transverse colon, again with the LigaSure device; this was all done laparoscopically. Once complete mobilization was done, I elected to make a midline incision to remove the specimen and to complete the laparoscopically-assisted colectomy. I made a longitudinal incision about 10 cm between the umbilicus and the pubic symphysis and carried our dissection down through subcutaneous tissue with Bovie cautery. The midline fascia was opened with Bovie cautery. Once this was done, we were able to identify the rectum, which had been previously mobilized, and I came across it using the contour stapler and a blue cartridge. Once we divided the rectum, most of the specimen was completely freed up, all the way up to the splenic flexure. There were a few more attachments that needed to be taken down with Bovie cautery, and once this was done, we were able to deliver the transverse colon through the wound. I completely mobilized the transverse colon, mobilizing the omentum off of it with Bovie cautery, and once it was cleared off, I used a pursestring suture maker, placed it on the distal transverse colon and divided the specimen off the distal transverse colon with a 10 blade, and set the specimen off. I opened up the pursestring suture, placed Allis clamps, triangulating the transverse colon. It was widely patent and soft. It easily admitted a 33-mm anvil. I placed that into the transverse colon, tied down the pursestring suture. Once this was completed, I had to mobilize some of the mesentery with the LigaSure device, avoiding the vessels to allow it to drop easily into the pelvis. Once it did that, I used a 33-mm ILS stapler, passing into the rectum, opened it, connected the anvil and the transverse colon to the stapler in the rectum, closed it, fired it, creating a coloproctostomy. I then removed the stapler and noted the donuts to be intact, but also oversewed the anastomosis with interrupted circumferentially placed 2-0 silk sutures. We then used a proctoscope, passed it into the rectum, placed a bowel clamp on the descending colon proximal to the anastomosis, and then using irrigation, put the anastomosis under water and injected air to distend up the distal transverse colon and proximal rectum, and noted no evidence of any leakage of air bubbles. We then removed the scope. Once this was completed, we placed the omentum back on top of the intestine, placed a Randolph-Strong drain in the pelvis, and brought it out through that 5-mm stab wound in the right upper quadrant. We closed the 10-mm wound in the left lower quadrant with 1 stitch of 0 Vicryl in the posterior fascia and then closed the midline fascia with a running double looped 0 PDS suture, then closed the skin on all the incision sites with standard skin clips, which completed the procedure. Estimated blood loss was approximately 300 mL. Sponge and needle counts were correct x2. The patient was awakened in the operating room, extubated and transferred to recovery in stable condition, with no complications. DICTATING PHYSICIAN: CHON BRODERICK M.D. [id number]#: [id number] ID: [id number] JOB#: [id number] ACCT: [id number] cc:CHON BRODERICK M.D. >
[2018-11-11] MEDS: POTASSI CL 20 MEQ/D5-1/2NS 1L 1,000 ML IV PRN ×2 (03:04→15:38)
[2018-11-11] MEDS: METRONIDAZOLE 500 MG/NS RTU 500 MG/100 ML RTUPB IV SCH ×4 (03:04→22:31)
[2018-11-11] MEDS: CEFAZOLIN 1 GM/D5W RTU 1 GM/50 ML RTUPB IV SCH ×4 (03:04→21:51)
[2018-11-11] MEDS: HEPARIN SOD (PORCINE) 5,000 UNIT/ML 1 ML SYRINGE SUBCUT SCH ×3 (05:54→21:51)
[2018-11-11 06:03] LABS: ABSOLUTE EOSINOPHILS # (AUTO) 0.1 10^3/uL (0.0-0.6); ABSOLUTE MONOCYTES (AUTO) 0.8 10^3/uL (0.1-1.4); ABSOLUTE NEUT (AUTO) 5.9 10^3/uL (1.7-8.2); BASOPHILS % (AUTO) 0.3 % (0-2); EOSINOPHILS % (AUTO) 1.6 % (0-6); HEMATOCRIT 28.4 % (37.9-51.0); HEMOGLOBIN 9.4 g/dL (13.5-17.0); LYMPHOCYTES % (AUTO) 12.4 % (13-45); MEAN CORPUSCULAR HEMOGLOBIN 27.7 pg (27.0-33.4); MEAN CORPUSCULAR HGB CONC 33.2 g/dL (32.0-36.0); MEAN CORPUSCULAR VOLUME 83 fl (80-97); MONOCYTES % (AUTO) 10.6 % (3-13); PLATELET COUNT 176 10^3/uL (150-450); RED BLOOD COUNT 3.41 10^6/uL (4.35-5.55); RED CELL DISTRIBUTION WIDTH 14.8 % (11.5-14.0); SEGMENTED NEUTROPHILS % (AUTO) 75.1 % (42-78); TOTAL CELLS COUNTED % (AUTO) 100 %; WHITE BLOOD COUNT 7.8 10^3/uL (4.0-10.5)
[2018-11-11 06:30] LABS: ANION GAP 7 (5-19); BLOOD UREA NITROGEN 7 mg/dL (7-20); CARBON DIOXIDE 23 mmol/L (22-30); CHLORIDE 110 mmol/L (98-107); GLUCOSE 113 mg/dL (75-110); POTASSIUM 4.1 mmol/L (3.6-5.0); SODIUM 139.9 mmol/L (137-145)
[2018-11-11] MEDS: FAMOTIDINE INJ/PF 20 MG/2 ML SDV IV SCH ×2 (09:07→21:51)
[2018-11-12] MEDS: CEFAZOLIN 1 GM/D5W RTU 1 GM/50 ML RTUPB IV SCH ×4 (02:08→20:10)
[2018-11-12] MEDS: POTASSI CL 20 MEQ/D5-1/2NS 1L 1,000 ML IV PRN ×2 (02:43→18:59)
[2018-11-12] MEDS: METRONIDAZOLE 500 MG/NS RTU 500 MG/100 ML RTUPB IV SCH ×4 (02:47→21:02)
[2018-11-12] MEDS: HEPARIN SOD (PORCINE) 5,000 UNIT/ML 1 ML SYRINGE SUBCUT SCH ×3 (05:26→21:30)
--- NOTE | 2018-11-12 08:06 | PDOC CONSULTATION ---
Consultation Consult Date: 11/12/18 Attending physician:: CHON BRODERICK Provider Consulted: TD HANDLEY Consult reason:: Suspected metastatic colon cancer status post surgery History of Present Illness Admission Date/PCP: 11/08/18 10:00 Patient complains of: Hematochezia History of Present Illness: ANAHI MELLO JR is a 67 year old male who originally complained of 3 episodes of hematochezia back in August. Those were the first episodes that he ever noticed. He had never had a colonoscopy. 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 CT of the abdomen done at that time indicated periaortic as well as pelvic adenopathy. Ultimately patient was stabilized then discharged home. Patient then had PET/CT done about a month ago, which indicated SUV of 6 and the sigmoid mass and SUV of 3-4 in both the periaortic as well as pelvic adenopathy. Patient was then brought in for exploratory laparotomy, this was done about 2 days ago, he had a sigmoid colectomy, along with lymph node sampling and the b ilateral iliac lymph nodes were quite enlarged, and sampling was done. There was no liver metastasis or omental metastasis grossly noted. Pathology is currently pending. Patient seems to be doing well clinically, however has not yet passed gas. Past Medical History Cardiac Medical History: Denies: Coronary Artery Disease, Myocardial Infarction, Hypertension Pulmonary Medical History: Denies: Asthma, Bronchitis, Chronic Obstructive Pulmonary Disease (COPD), Pneumonia Neurological Medical History: Denies: Seizures Musculoskeltal Medical History: Denies: Arthritis Psychiatric Medical History: Denies: Depression Hematology: Denies: Anemia Past Surgical History Past Surgical History: Reports: Other - Prior to this colectomy that was just done no other surgeries Social History Information Source: Patient Smoking Status: Current Every Day Smoker Frequency of Alcohol Use: Heavy - 4 beers per day 12 on weekends denies withdrawal symptoms, seizure or blackout Hx Recreational Drug Use: No Drugs: None Hx Prescription Drug Abuse: No - Advance Directive Resuscitation Status: Full Code Family History Family History: COPD, Hypertension, Other - Brother has lymphoma Parental Family History Reviewed: Yes Children Family History Reviewed: Yes Sibling(s) Family History Reviewed.: Yes Medication/Allergy Home Medications: No Home Medications 09/12/18 Allergies/Adverse Reactions: Penicillins Allergy (Verified 09/12/18 14:19) Review of Systems Constitutional: ABSENT: chills, fever(s), headache(s), weight gain, weight loss Eyes: ABSENT: visual disturbances Ears: ABSENT: hearing changes Cardiovascular: ABSENT: chest pain, dyspnea on exertion, edema, orthropnea, p alpitations Respiratory: ABSENT: cough, hemoptysis Gastrointestinal: ABSENT: abdominal pain, constipation, diarrhea, hematemesis, hematochezia, nausea, vomiting Genitourinary: ABSENT: dysuria, hematuria Musculoskeletal: ABSENT: joint swelling Integumentary: ABSENT: rash, wounds Neurological: ABSENT: abnormal gait, abnormal speech, confusion, dizziness, focal weakness, syncope Psychiatric: ABSENT: anxiety, depression, homidical ideation, suicidal ideation Endocrine: ABSENT: cold intolerance, heat intolerance, polydipsia, polyuria Hematologic/Lymphatic: ABSENT: easy bleeding, easy bruising Physical Exam Vital Signs: Temp Pulse Resp BP Pulse Ox 98.4 F 91 18 153/83 H 97 11/11/18 20:28 11/11/18 20:28 11/11/18 16:41 11/11/18 20:28 11/11/18 20:28 Intake & Output 11/11/18 11/12/18 11/13/18 06:59 06:59 06:59 Intake Total 2960 3800 Output Total 2750 1325 Balance 210 2475 Weight 83.6 kg 86.2 kg General appearance: PRESENT: no acute distress, well-developed, well-nourished Head exam: PRESENT: atraumatic, normocephalic Eye exam: PRESENT: conjunctiva pink, EOMI, PERRLA. ABSENT: scleral icterus Ear exam: PRESENT: normal external ear exam Mouth exam: PRESENT: moist, tongue midline Neck exam: ABSENT: carotid bruit, JVD, lymphadenopathy, thyromegaly Respiratory exam: PRESENT: clear to auscultation amy. ABSENT: rales, rhonchi, wheezes Cardiovascular exam: PRESENT: RRR. ABSENT: diastolic murmur, rubs, systolic murmur Pulses: PRESENT: normal dorsalis pedis pul Vascular exam: PRESENT: normal capillary refill GI/Abdominal exam: PRESENT: normal bowel sounds, soft. ABSENT: distended, guarding, mass, organolmegaly, rebound, tenderness Rectal exam: PRESENT: deferred Extremities exam: PRESENT: full ROM. ABSENT: calf tenderness, clubbing, pedal edema Neurological exam: PRESENT: alert, awake, oriented to person, oriented to place, oriented to time, oriented to situation, CN II-XII grossly intact. ABSENT: motor sensory deficit Psychiatric exam: PRESENT: appropriate affect, normal mood. ABSENT: homicidal ideation, suicidal ideation Skin exam: PRESENT: dry, intact, warm. ABSENT: cyanosis, rash Results Laboratory Results: 11/11/18 05:53 11/11/18 05:53 Impressions: Guidance Fluoroscopy 11/08/18 00:00 IMPRESSION: Intra procedural imaging and fluoro Chest X-Ray 11/08/18 17:35 IMPRESSION: New venous access catheter tip at the cavoatrial junction. Otherwise satisfactory postoperative chest radiograph. 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 I will go ahead and send tumor markers today of testicular markers. I will also send CEA as well as iron studies. We will follow closely. No other staging should be needed at this point. - Time Time Spent: Greater than 70 Minutes - Inpatient Certification I certify that my determination is in accordance with my understanding of Medicare's requirements for reasonable and necessary INPATIENT services [42 CFR 412.3e].: Yes Medical Necessity: Need for Pain Control, Risk of Complication if Not Cared For in Hospital
[2018-11-12] MEDS: FAMOTIDINE INJ/PF 20 MG/2 ML SDV IV SCH ×2 (09:24→21:30)
--- NOTE | 2018-11-12 10:08 | PDOC PROGRESS REPORT ---
Subjective Progress Note for:: 11/12/18 Subjective:: feels ok some incisional pain able to ambulate no flatus Reason For Visit: COLON CANCER Physical Exam Vital Signs: Temp Pulse Resp BP Pulse Ox 98.4 F 91 18 153/83 H 97 11/11/18 20:28 11/11/18 20:28 11/11/18 16:41 11/11/18 20:28 11/11/18 20:28 Intake & Output 11/11/18 11/12/18 11/13/18 06:59 06:59 06:59 Intake Total 2960 3800 50 Output Total 2750 1325 Balance 210 2475 50 Weight 83.6 kg 86.2 kg General appearance: PRESENT: no acute distress Eye exam: PRESENT: EOMI Mouth exam: PRESENT: moist Neck exam: PRESENT: full ROM Respiratory exam: PRESENT: clear to auscultation amy Cardiovascular exam: PRESENT: RRR Pulses: PRESENT: normal radial pulses, normal femoral pulses GI/Abdominal exam: PRESENT: soft Rectal exam: PRESENT: deferred Extremities exam: PRESENT: full ROM Musculoskeletal exam: PRESENT: full ROM Neurological exam: PRESENT: alert, awake, oriented to person, oriented to place Psychiatric exam: PRESENT: appropriate affect Skin exam: PRESENT: dry Results Laboratory Results: 11/11/18 05:53 11/11/18 05:53 Impressions: Guidance Fluoroscopy 11/08/18 00:00 IMPRESSION: Intra procedural imaging and fluoro Chest X-Ray 11/08/18 17:35 IMPRESSION: New venous access catheter tip at the cavoatrial junction. Otherwise satisfactory postoperative chest radiograph. Assessment & Plan - Plan Summary Plan Summary: cont current rxx awaiting return of bowel function awaiting pathology currently on clears will advance to full when he starts passing flatus
[2018-11-12 11:23] LABS: ABSOLUTE EOSINOPHILS # (AUTO) 0.2 10^3/uL (0.0-0.6); ABSOLUTE LYMPHOCYTES (AUTO) 0.8 10^3/uL (0.5-4.7); ABSOLUTE MONOCYTES (AUTO) 0.8 10^3/uL (0.1-1.4); ABSOLUTE NEUT (AUTO) 4.9 10^3/uL (1.7-8.2); BASOPHILS % (AUTO) 0.3 % (0-2); EOSINOPHILS % (AUTO) 2.9 % (0-6); HEMATOCRIT 27.2 % (37.9-51.0); HEMOGLOBIN 8.9 g/dL (13.5-17.0); LYMPHOCYTES % (AUTO) 11.4 % (13-45); MEAN CORPUSCULAR HEMOGLOBIN 27.3 pg (27.0-33.4); MEAN CORPUSCULAR HGB CONC 32.8 g/dL (32.0-36.0); MEAN CORPUSCULAR VOLUME 83 fl (80-97); MONOCYTES % (AUTO) 12.2 % (3-13); PLATELET COUNT 181 10^3/uL (150-450); RED BLOOD COUNT 3.26 10^6/uL (4.35-5.55); SEGMENTED NEUTROPHILS % (AUTO) 73.2 % (42-78); TOTAL CELLS COUNTED % (AUTO) 100 %; WHITE BLOOD COUNT 6.6 10^3/uL (4.0-10.5)
[2018-11-12 11:32] LABS: RETICULOCYTE COUNT (AUTO) 1.55 % (0.66-2.85)
[2018-11-12 11:54] LABS: IRON(TIBC) 14.9 ug/dL (49-181)
[2018-11-12 11:56] LABS: ANION GAP 5 (5-19); BLOOD UREA NITROGEN 7 mg/dL (7-20); CALCIUM 8.8 mg/dL (8.4-10.2); CARBON DIOXIDE 25 mmol/L (22-30); CHLORIDE 109 mmol/L (98-107); GLUCOSE 100 mg/dL (75-110); SODIUM 138.8 mmol/L (137-145)
[2018-11-12 12:00] LABS: POTASSIUM 4.1 mmol/L (3.6-5.0)
[2018-11-12 13:54] LABS: CARCINOEMBRYONIC ANTIGEN 5.4 ng/mL (<3.0)
[2018-11-13] MEDS: CEFAZOLIN 1 GM/D5W RTU 1 GM/50 ML RTUPB IV SCH ×4 (02:27→20:27)
[2018-11-13] MEDS: METRONIDAZOLE 500 MG/NS RTU 500 MG/100 ML RTUPB IV SCH ×4 (03:45→21:06)
[2018-11-13] MEDS: HEPARIN SOD (PORCINE) 5,000 UNIT/ML 1 ML SYRINGE SUBCUT SCH ×3 (05:24→21:09)
--- NOTE | 2018-11-13 08:20 | PDOC PROGRESS REPORT ---
Subjective Progress Note for:: 11/13/18 Subjective:: Pt still has not passed gas, having some lower abd discomfort, not having N/V. Had long discussion w/ pt today, spent >40m in discussion Reason For Visit: COLON CANCER Physical Exam Vital Signs: Temp Pulse Resp BP Pulse Ox 98.6 F 88 20 117/72 97 11/13/18 07:22 11/13/18 07:22 11/13/18 07:22 11/13/18 07:22 11/13/18 07:22 Intake & Output 11/12/18 11/13/18 11/14/18 06:59 06:59 06:59 Intake Total 3800 2548 Output Total 1325 2225 Balance 2475 323 Weight 86.2 kg 85.6 kg General appearance: PRESENT: no acute distress, well-developed, well-nourished Head exam: PRESENT: atraumatic, normocephalic Eye exam: PRESENT: conjunctiva pink, EOMI, PERRLA. ABSENT: scleral icterus Ear exam: PRESENT: normal external ear exam Mouth exam: PRESENT: moist, tongue midline Neck exam: ABSENT: carotid bruit, JVD, lymphadenopathy, thyromegaly Respiratory exam: PRESENT: clear to auscultation amy. ABSENT: rales, rhonchi, wheezes Cardiovascular exam: PRESENT: RRR. ABSENT: diastolic murmur, rubs, systolic murmur Pulses: PRESENT: normal dorsalis pedis pul Vascular exam: PRESENT: normal capillary refill GI/Abdominal exam: PRESENT: normal bowel sounds, soft. ABSENT: distended, guarding, mass, organolmegaly, rebound, tenderness Rectal exam: PRESENT: deferred Extremities exam: PRESENT: full ROM. ABSENT: calf tenderness, clubbing, pedal edema Neurological exam: PRESENT: alert, awake, oriented to person, oriented to place, oriented to time, oriented to situation, CN II-XII grossly intact. ABSENT: motor sensory deficit Psychiatric exam: PRESENT: appropriate affect, normal mood. ABSENT: homicidal ideation, suicidal ideation Skin exam: PRESENT: dry, intact, warm. ABSENT: cyanosis, rash Results Laboratory Results: 11/12/18 11:07 11/12/18 11:07 11/12/18 11/12/18 11/12/18 11:07 11:07 11:07 WBC 6.6 RBC 3.26 L Hgb 8.9 L Hct 27.2 L MCV 83 MCH 27.3 MCHC 32.8 RDW 15.0 H Plt Count 181 Seg Neutrophils % 73.2 Lymphocytes % 11.4 L Monocytes % 12.2 Eosinophils % 2.9 Basophils % 0.3 Absolute Neutrophils 4.9 Absolute Lymphocytes 0.8 Absolute Monocytes 0.8 Absolute Eosinophils 0.2 Absolute Basophils 0.0 Retic Count (auto) 1.55 Absolute Retic 0.050 Sodium Potassium Chloride Carbon Dioxide Anion Gap BUN Creatinine Est GFR ( Amer) Est GFR (Non-Af Amer) Glucose Calcium Iron 14.9 L TIBC 339 % Saturation 4 Ferritin 36.10 Prostate Specific Ag 1030.000 H Vitamin B12 222.0 L Folate 10.00 11/12/18 11:07 WBC RBC Hgb Hct MCV MCH MCHC RDW Plt Count Seg Neutrophils % Lymphocytes % Monocytes % Eosinophils % Basophils % Absolute Neutrophils Absolute Lymphocytes Absolute Monocytes Absolute Eosinophils Absolute Basophils Retic Count (auto) Absolute Retic Sodium 138.8 Potassium 4.1 Chloride 109 H Carbon Dioxide 25 Anion Gap 5 BUN 7 Creatinine 0.64 Est GFR ( Amer) > 60 Est GFR (Non-Af Amer) > 60 Glucose 100 Calcium 8.8 Iron TIBC % Saturation Ferritin Prostate Specific Ag Vitamin B12 Folate Impressions: Guidance Fluoroscopy 11/08/18 00:00 IMPRESSION: Intra procedural imaging and fluoro Chest X-Ray 11/08/18 17:35 IMPRESSION: New venous access catheter tip at the cavoatrial junction. Otherwise satisfactory postoperative chest radiograph. 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
[2018-11-13] MEDS: POTASSI CL 20 MEQ/D5-1/2NS 1L 1,000 ML IV PRN (08:21)
[2018-11-13] MEDS: FAMOTIDINE INJ/PF 20 MG/2 ML SDV IV SCH ×2 (09:16→21:06)
--- NOTE | 2018-11-13 10:51 | PDOC PROGRESS REPORT ---
Subjective Progress Note for:: 11/13/18 Subjective:: depressed, no flatus wants to eat Reason For Visit: COLON CANCER Physical Exam Vital Signs: Temp Pulse Resp BP Pulse Ox 98.6 F 88 20 117/72 97 11/13/18 07:22 11/13/18 07:22 11/13/18 07:22 11/13/18 07:22 11/13/18 07:22 Intake & Output 11/12/18 11/13/18 11/14/18 06:59 06:59 06:59 Intake Total 3800 3548 50 Output Total 1325 2225 Balance 2475 1323 50 Weight 86.2 kg 85.6 kg General appearance: PRESENT: no acute distress Head exam: PRESENT: normocephalic Eye exam: PRESENT: EOMI Ear exam: PRESENT: normal external ear exam Mouth exam: PRESENT: moist Neck exam: PRESENT: full ROM Respiratory exam: PRESENT: clear to auscultation amy Cardiovascular exam: PRESENT: RRR Pulses: PRESENT: normal radial pulses, normal femoral pulses, normal dorsalis pedis pul GI/Abdominal exam: PRESENT: soft Rectal exam: PRESENT: deferred Extremities exam: PRESENT: full ROM Musculoskeletal exam: PRESENT: full ROM Neurological exam: PRESENT: alert, awake, oriented to person, oriented to place Psychiatric exam: PRESENT: appropriate affect, depressed - psa markedly elevated discussed with pt about possibiltly of 2 seperate cancers currently still not passing flatus no abd distension will check kub cont clears till passing flatus Results Laboratory Results: 11/12/18 11:07 11/12/18 11:07 11/12/18 11/12/18 11/12/18 11:07 11:07 11:07 WBC 6.6 RBC 3.26 L Hgb 8.9 L Hct 27.2 L MCV 83 MCH 27.3 MCHC 32.8 RDW 15.0 H Plt Count 181 Seg Neutrophils % 73.2 Lymphocytes % 11.4 L Monocytes % 12.2 Eosinophils % 2.9 Basophils % 0.3 Absolute Neutrophils 4.9 Absolute Lymphocytes 0.8 Absolute Monocytes 0.8 Absolute Eosinophils 0.2 Absolute Basophils 0.0 Retic Count (auto) 1.55 Absolute Retic 0.050 Sodium Potassium Chloride Carbon Dioxide Anion Gap BUN Creatinine Est GFR ( Amer) Est GFR (Non-Af Amer) Glucose Calcium Iron 14.9 L TIBC 339 % Saturation 4 Ferritin 36.10 Prostate Specific Ag 1030.000 H Vitamin B12 222.0 L Folate 10.00 11/12/18 11:07 WBC RBC Hgb Hct MCV MCH MCHC RDW Plt Count Seg Neutrophils % Lymphocytes % Monocytes % Eosinophils % Basophils % Absolute Neutrophils Absolute Lymphocytes Absolute Monocytes Absolute Eosinophils Absolute Basophils Retic Count (auto) Absolute Retic Sodium 138.8 Potassium 4.1 Chloride 109 H Carbon Dioxide 25 Anion Gap 5 BUN 7 Creatinine 0.64 Est GFR ( Amer) > 60 Est GFR (Non-Af Amer) > 60 Glucose 100 Calcium 8.8 Iron TIBC % Saturation Ferritin Prostate Specific Ag Vitamin B12 Folate Impressions: Guidance Fluoroscopy 11/08/18 00:00 IMPRESSION: Intra procedural imaging and fluoro Chest X-Ray 11/08/18 17:35 IMPRESSION: New venous access catheter tip at the cavoatrial junction. Otherwise satisfactory postoperative chest radiograph.
--- NOTE | 2018-11-13 12:05 | RADIOLOGY REPORT (SQ) ---
EXAM DESCRIPTION: KUB/ABDOMEN (SINGLE VIEW) COMPLETED DATE/TIME: 11/13/2018 11:41 am REASON FOR STUDY: s/p sigmoid colectomy C18.9 MALIGNANT NEOPLASM OF COLON, UNSPECIFIED COMPARISON: 09/14/2018 NUMBER OF VIEWS: One view. TECHNIQUE: Supine radiographic image of the abdomen acquired. LIMITATIONS: None. FINDINGS: BOWEL GAS PATTERN: There is considerable large bowel gas. CALCIFICATIONS: No suspicious calcifications. SOFT TISSUES: No gross mass or suggestion of organomegaly. HARDWARE: Skin bryant. BONES: No acute fracture. No worrisome bone lesions. OTHER: No other significant finding. IMPRESSION: Possible colonic ileus. TECHNICAL DOCUMENTATION: JOB ID: [id number] [employer]- All Rights Reserved Reading location - IP/workstation name: [email or web address]
[2018-11-14] MEDS: KETOROLAC TROMETHAMINE INJ/PF 30 MG/1 ML SDV IV PRN (00:25)
[2018-11-14] MEDS: METRONIDAZOLE 500 MG/NS RTU 500 MG/100 ML RTUPB IV SCH ×2 (02:09→09:37)
[2018-11-14] MEDS: CEFAZOLIN 1 GM/D5W RTU 1 GM/50 ML RTUPB IV SCH ×2 (03:52→08:59)
[2018-11-14] MEDS: POTASSI CL 20 MEQ/D5-1/2NS 1L 1,000 ML IV PRN (03:53)
[2018-11-14] MEDS: HEPARIN SOD (PORCINE) 5,000 UNIT/ML 1 ML SYRINGE SUBCUT SCH (05:20)
--- NOTE | 2018-11-14 08:53 | PDOC PROGRESS REPORT ---
Subjective Progress Note for:: 11/14/18 Subjective:: Patient doing much better today, passed gas and had bowel movement yesterday. Abdominal cramping is gone away. Today we had a long discussion about next steps of care. We discussed the pathology, the external iliac biopsies indicated metastatic prostate cancer, the colon specimen only indicated tubulovillous adenoma with high-grade dysplasia but no invasive carcinoma, lymph nodes were negative, appendicitis was noted as well. Today I had a long discussion with the patient, his daughter was also on the phone and I went over his plan in terms of his prostate cancer. Reason For Visit: COLON CANCER Physical Exam Vital Signs: Temp Pulse Resp BP Pulse Ox 98.2 F 85 20 143/80 H 93 11/13/18 15:27 11/13/18 15:27 11/13/18 15:27 11/13/18 15:27 11/13/18 15:27 Intake & Output 11/13/18 11/14/18 11/15/18 06:59 06:59 06:59 Intake Total 3548 1780 Output Total 2225 1075 Balance 1323 705 Weight 85.6 kg 85.1 kg General appearance: PRESENT: no acute distress, well-developed, well-nourished Head exam: PRESENT: atraumatic, normocephalic Eye exam: PRESENT: conjunctiva pink, EOMI, PERRLA. ABSENT: scleral icterus Ear exam: PRESENT: normal external ear exam Mouth exam: PRESENT: moist, tongue midline Neck exam: ABSENT: carotid bruit, JVD, lymphadenopathy, thyromegaly Respiratory exam: PRESENT: clear to auscultation amy. ABSENT: rales, rhonchi, wheezes Cardiovascular exam: PRESENT: RRR. ABSENT: diastolic murmur, rubs, systolic murmur Pulses: PRESENT: normal dorsalis pedis pul Vascular exam: PRESENT: normal capillary refill GI/Abdominal exam: PRESENT: normal bowel sounds, soft. ABSENT: distended, guarding, mass, organolmegaly, rebound, tenderness Rectal exam: PRESENT: deferred Extremities exam: PRESENT: full ROM. ABSENT: calf tenderness, clubbing, pedal edema Neurological exam: PRESENT: alert, awake, oriented to person, oriented to place, oriented to time, oriented to situation, CN II-XII grossly intact. ABSENT: motor sensory deficit Psychiatric exam: PRESENT: appropriate affect, normal mood. ABSENT: homicidal ideation, suicidal ideation Skin exam: PRESENT: dry, intact, warm. ABSENT: cyanosis, rash Results Laboratory Results: 11/12/18 11:07 11/12/18 11:07 Impressions: Guidance Fluoroscopy 11/08/18 00:00 IMPRESSION: Intra procedural imaging and fluoro Chest X-Ray 11/08/18 17:35 IMPRESSION: New venous access catheter tip at the cavoatrial junction. Otherwise satisfactory postoperative chest radiograph. KUB X-Ray 11/13/18 00:00 IMPRESSION: Possible colonic ileus. Assessment & Plan - Diagnosis (1) Prostate cancer metastatic to intrapelvic lymph node Is this a current diagnosis for this admission?: Yes Plan: Had a long discussion with patient today, start patient on Casodex 50 mg daily. Do bone scan today. If patient is surgically ready for discharge, he will discharge home and see me in about 3 weeks. We will consider most likely a combination chemo/androgen deprivation therapy approach. (2) Acute blood loss anemia Is this a current diagnosis for this admission?: Yes Plan: Give 1 dose of IV iron today give B12 as well - Time Time Spent with patient: 35 or more minutes
[2018-11-14] MEDS: FAMOTIDINE INJ/PF 20 MG/2 ML SDV IV SCH (09:01)
--- NOTE | 2018-11-14 10:17 | PDOC PROGRESS REPORT ---
Subjective Progress Note for:: 11/14/18 Reason For Visit: COLON CANCER Physical Exam Vital Signs: Temp Pulse Resp BP Pulse Ox 98.2 F 85 20 143/80 H 93 11/13/18 15:27 11/13/18 15:27 11/13/18 15:27 11/13/18 15:27 11/13/18 15:27 Intake & Output 11/13/18 11/14/18 11/15/18 06:59 06:59 06:59 Intake Total 3548 1780 50 Output Total 2225 1075 90 Balance 1323 705 -40 Weight 85.6 kg 85.1 kg General appearance: PRESENT: no acute distress Eye exam: PRESENT: EOMI Mouth exam: PRESENT: moist Neck exam: PRESENT: full ROM Respiratory exam: PRESENT: clear to auscultation amy Cardiovascular exam: PRESENT: RRR Pulses: PRESENT: normal radial pulses, normal femoral pulses GI/Abdominal exam: PRESENT: soft Rectal exam: PRESENT: deferred Extremities exam: PRESENT: full ROM Musculoskeletal exam: PRESENT: full ROM Neurological exam: PRESENT: alert, awake, oriented to person, oriented to place Psychiatric exam: PRESENT: appropriate affect Skin exam: PRESENT: dry Results Laboratory Results: 11/12/18 11:07 11/12/18 11:07 Impressions: Guidance Fluoroscopy 11/08/18 00:00 IMPRESSION: Intra procedural imaging and fluoro Chest X-Ray 11/08/18 17:35 IMPRESSION: New venous access catheter tip at the cavoatrial junction. Otherwise satisfactory postoperative chest radiograph. KUB X-Ray 11/13/18 00:00 IMPRESSION: Possible colonic ileus. Assessment & Plan - Plan Summary Plan Summary: feels better today passing stool and flatus renetta liquids wants to go home today will dc home on soft diet.
--- NOTE | 2018-11-14 10:49 | DISCHARGE SUMMARY E ---
Discharge Summary NAME: ANAHI MELLO JR : 1950 AGE: 67Y ADMITTED: 11/08/2018 DISCHARGED: 11/14/2018 ADMISSION DIAGNOSIS: COLON CANCER. DISCHARGE DIAGNOSIS: COLON AND PROSTATE CANCER. OPERATIVE PROCEDURES: LAPAROSCOPIC SIGMOID COLECTOMY WITH ILIAC NODE BIOPSY AND PORT-A-CATH PLACEMENT. SURGEON: Henry Broderick MD REASON FOR HOSPITALIZATION/HOSPITAL COURSE: This is a 67-year-old male who is scheduled for an elective laparoscopic assisted sigmoid colectomy. He underwent the operation on the day of admission along with a Port-A-Cath placement and an iliac node biopsy. Postoperatively, he had a benign routine postop course. He was managed with an NG tube for approximately 24 hours, which was subsequently removed, and then he was continued NPO until he started having return of bowel function. By postop day 3, he was feeling better. He had a small amount of flatus, and therefore was started on a clear liquid diet. He remained on a clear liquid diet for approximately 3 days, until he started having bowel movements. On the day of discharge, he is now tolerating a clear liquid diet, having normal stool and flatus passage, and wants to be discharged home today. He feels well. His Randolph-Strong drain has been removed. He has bryant in place. He will be discharged home today with close followup in one week after discharge. Pathology returned showing metastatic prostate cancer to the iliac lymph nodes as well as periaortic lymph nodes. In addition to that, the lesion in the colon showed severe dysplasia. He was seen by Dr. Lipscomb from Oncology, who will also see the patient in followup for treatment of the metastatic prostate cancer. FINAL DIAGNOSIS: METASTATIC PROSTATE CANCER AND COLON CANCER. DICTATING PHYSICIAN: HENRY BRODERICK M.D. [id number] PHY#: [id number] ID: [id number] JOB#: [id number] ACCT: [id number] cc:HENRY BRODERICK M.D. >
[2018-11-14] MEDS ORDERED: CYANOCOBALAMIN (VITAMIN B-12) INJ 1000 MCG/1 ML VIAL IM ONE (11:30)
[2018-11-14] MEDS ORDERED: IRON SUCROSE COMPLEX INJ/PF 100 MG/5 ML SDV IV ONE (11:30)
[2018-11-14] MEDS ORDERED: CYANOCOBALAMIN (VITAMIN B-12) INJ 1000 MCG/1 ML VIAL IM SCH (13:00)
[2018-11-14] MEDS ORDERED: BICALUTAMIDE 50 MG TABLET PO SCH (13:00)
[2018-11-14] MEDS ORDERED: FERUMOXYTOL (NON-ESRD) 510 MG/NS 100 ML IV ONE ×2 (13:00)
[2018-11-14] MEDS ORDERED: FERUMOXYTOL (NESRD) 510 MG/17 ML VIAL IV ONE (13:00)
[2018-11-14 13:14] VITALS: BP 148/73
== END 2018-11-14 15:47 | disposition home or self-care (01) | DRG 330 ==
LOC: INOR 10:00 → 4S 19:48
PROVIDERS: ADMIT Surgery; ATTEND Surgery
PROC: 07BC4ZX Excision of Pelvis Lymphatic, Percutaneous Endoscopic Approach, Diagnostic (ICD-10-PCS; 2018-11-08)
PROC: 02HV33Z Insertion of Infusion Device into Superior Vena Cava, Percutaneous Approach (ICD-10-PCS; 2018-11-08)
PROC: B518ZZA Fluoroscopy of Superior Vena Cava, Guidance (ICD-10-PCS; 2018-11-08)
PROC: 0DJD8ZZ Inspection of Lower Intestinal Tract, Via Natural or Artificial Opening Endoscopic (ICD-10-PCS; 2018-11-08)
PROC: 0DTG0ZZ Resection of Left Large Intestine, Open Approach (ICD-10-PCS; principal; 2018-11-08 12:00)
PROC: 0JH60WZ Insertion of Totally Implantable Vascular Access Device into Chest Subcutaneous Tissue and Fascia, Open Approach (ICD-10-PCS; 2018-11-08 12:00)
DX: C18.7 Malignant neoplasm of sigmoid colon (principal); C77.2 Secondary and unspecified malignant neoplasm of intra-abdominal lymph nodes; D62 Acute posthemorrhagic anemia; C61 Malignant neoplasm of prostate; K63.5 Polyp of colon; H91.91 Unspecified hearing loss, right ear; F17.210 Nicotine dependence, cigarettes, uncomplicated
CPT/HCPCS: 36415; 71045; 74018; 77001; 790; 80048; 82105; 82378; 82607; 82728; 82746; 83540; 83550; 83615; 84153; 84702; 85025; 85045; 86850; 86900; 86901; 88304; 88305; 88309; 88313; 88341; 88342; 93005; 93010; 94640; 94799; C1788; J0330; J0690; J1100; J1642; J1644; J1756; J1885; J2250; J2270; J2405; J2704; J3010; J3420; J3480; J3490; J7050; Q0138; Q9967; Q9968; S0028

== ENCOUNTER → 2018-12-04 | Outpatient (CLI) | payer MEDICARE ==
--- NOTE | 2018-12-04 16:12 | RADIOLOGY REPORT (SQ) ---
EXAM DESCRIPTION: NM WHOLE BODY BONE SCAN COMPLETED DATE/TIME: 12/04/2018 3:01 pm REASON FOR STUDY: PROSTATE CANCER C61 MALIGNANT NEOPLASM OF PROSTATE COMPARISON: No available imaging studies for comparison. RADIONUCLIDE AND DOSE: 21.4 millicuries Tc99m HDP. The route of agent administration: Intravenous. ADDITIONAL DRUGS AND DOSES: None. TECHNIQUE: Routine delayed images at 3 hour post radionuclide injection acquired of the bony skeleto n including anterior and posterior whole-body projections and additional focused images as needed. LIMITATIONS: None. FINDINGS: BONES: Focal increased uptake left 5th anterior rib. No corresponding abnormality is seen on the PET-CT 10/08/2018. Pattern is more typical of posttraumatic etiology. Mild uptake right SI joint. Subtle non hypermetabolic lucency in the right ilium on PET-CT image 204 . KIDNEYS: Symmetric excretion without obstruction. OTHER: No other significant finding. IMPRESSION: Possible metastatic lesions right ilium and the left rib. The rib pattern is more typic al of traumatic etiology. COMMENT: Quality measure 147: Current bone scan is compared with any available plain radiographs, p rior bone scans, and CT/MRI. TECHNICAL DOCUMENTATION: JOB ID: [id number] [employer]- All Rights Reserved Reading location - IP/workstation name: [email or web address]
== END ==
LOC: RAD 08:15
PROVIDERS: ATTEND Internal Medicine
DX: C61 Malignant neoplasm of prostate (principal)
CPT/HCPCS: 78306; A9561; Q9969

== ENCOUNTER → 2018-12-24 | Outpatient (CLI) | payer MEDICARE ==
--- NOTE | 2018-12-24 12:28 | RADIOLOGY REPORT (SQ) ---
EXAM DESCRIPTION: HAND RIGHT 3 VIEWS COMPLETED DATE/TIME: 12/24/2018 12:00 pm REASON FOR STUDY: PAIN IN RIGHT WRIST (M25.531) M25.531 PAIN IN RIGHT WRIST COMPARISON: Right wrist three views same date EXAM PARAMETERS: NUMBER OF VIEWS: Three views. TECHNIQUE: AP, lateral and oblique radiographic images acquired of the right hand. LIMITATIONS: None. FINDINGS: MINERALIZATION: Normal. BONES: No acute fracture or dislocation. No worrisome bone lesions. Old crush injury to the right t humb distal phalanx, healed. JOINTS: There is joint space narrowing at the scaphotrapezium joint with mild bony sclerosis. No bul ky bony spurring. SOFT TISSUES: No soft tissue swelling. No foreign body. OTHER: No other significant finding. IMPRESSION: Scaphotrapezium joint osteoarthritis TECHNICAL DOCUMENTATION: JOB ID: [id number] [employer]- All Rights Reserved Reading location - IP/workstation name: [email or web address]
--- NOTE | 2018-12-24 12:31 | RADIOLOGY REPORT (SQ) ---
EXAM DESCRIPTION: WRIST RIGHT 3 VIEWS COMPLETED DATE/TIME: 12/24/2018 12:00 pm REASON FOR STUDY: WRIST PAIN M25.531 PAIN IN RIGHT WRIST COMPARISON: Right hand three views same date NUMBER OF VIEWS: Three views. TECHNIQUE: AP, lateral, and oblique radiographic images acquired of the right wrist. LIMITATIONS: None. FINDINGS: MINERALIZATION: Normal. BONES: No acute fracture or dislocation. No worrisome bone lesions. Normal alignment. JOINTS: Moderate wrist joint effusion. There is narrowing at the scaphotrapezium joint, with bony sclerosis along the scaphoid. This is lik nate from osteoarthritis. There is normal alignment elsewhere in the intercarpal joints and carpometa carpal joints. Radiocarpal joint unremarkable. SOFT TISSUES: Diffuse soft tissue swelling, with a wrist joint effusion. No foreign body. OTHER: No other significant finding. IMPRESSION: Scaphotrapezium joint osteoarthritis. Wrist joint effusion. No acute fracture. TECHNICAL DOCUMENTATION: JOB ID: [id number] [employer]- All Rights Reserved Reading location - IP/workstation name: [email or web address]
== END ==
LOC: RAD 11:17
PROVIDERS: ATTEND Physician Assistant Medical
DX: M25.531 Pain in right wrist (principal); M19.031 Primary osteoarthritis, right wrist; M25.431 Effusion, right wrist

== ENCOUNTER → 2019-03-05 | Outpatient (CLI) | payer MEDICARE ==
--- NOTE | 2019-03-05 11:46 | RADIOLOGY REPORT (SQ) ---
EXAM DESCRIPTION: CT CHEST WITH COMPLETED DATE/TIME: 03/05/2019 8:27 am REASON FOR STUDY: MALIGNANT NEOPLASM OF PROSTATE C61 MALIGNANT NEOPLASM OF PROSTATE COMPARISON: None. TECHNIQUE: CT scan of the chest performed using helical scanning technique with dynamic intravenous contrast injection. Images reviewed with lung, soft tissue and bone windows. Reconstructed coronal and sagittal MPR and MIP images reviewed. All images stored on PACS. All CT scanners at this facility use dose modulation, iterative reconstruction, and/or weight based d osing when appropriate to reduce radiation dose to as low as reasonably achievable (ALARA). [facility]: Dose Right [facility]: CareDose [facility]: Dose Right [facility]: Teradose 4D [facility]: Tyto Life CONTRAST TYPE AND DOSE: 95 mL Omnipaque 350- low osmolar. RENAL FUNCTION: Creatinine 0.7 RADIATION DOSE: . LIMITATIONS: None. FINDINGS: LUNGS AND PLEURA: No opacities, nodules, masses. No pneumothorax. No effusions. HILAR AND MEDIASTINAL STRUCTURES: No identified masses or abnormal nodes. HEART AND VASCULAR STRUCTURES: No aneurysm or dissection. No central pulmonary emboli. No pericardi al effusion. HARDWARE: None in the chest. UPPER ABDOMEN: See separate report of the CT of the abdomen. THYROID AND OTHER SOFT TISSUES: No masses. No adenopathy. BONES: No significant finding. OTHER: No other significant finding. IMPRESSION: NORMAL CT OF THE CHEST WITH IV CONTRAST. TECHNICAL DOCUMENTATION: JOB ID: [id number] Quality ID # [id number]: Final reports with documentation of one or more dose reduction techniques (e.g., Au tomated exposure control, adjustment of the mA and/or kV according to patient size, use of iterative reconstruction technique) 2010 [employer]- All Rights Reserved Reading location - IP/workstation name: [email or web address]
--- NOTE | 2019-03-05 12:12 | RADIOLOGY REPORT (SQ) ---
EXAM DESCRIPTION: CT ABD/PELVIS WITH IV ONLY COMPLETED DATE/TIME: 03/05/2019 8:27 am REASON FOR STUDY: MALIGNANT NEOPLASM OF PROSTATE C61 MALIGNANT NEOPLASM OF PROSTATE COMPARISON: 09/26/2018 None. TECHNIQUE: CT scan of the abdomen and pelvis performed using helical scanning technique with dynamic intravenous contrast injection. No oral contrast. Images reviewed with lung, soft tissue, and bone windows. Reconstructed coronal and sagittal MPR images reviewed. Delayed images for evaluation of the urinary system also acquired. All images stored on PACS. All CT scanners at this facility use dose modulation, iterative reconstruction, and/or weight based d osing when appropriate to reduce radiation dose to as low as reasonably achievable (ALARA). [facility]: Dose Right [facility]: CareDose [facility]: Dose Right [facility]: Teradose 4D [facility]: [employer] CONTRAST TYPE AND DOSE: contrast/concentration: Isovue 350.00 mg/ml; Total Contrast Delivered: 95.0 ml; Total Saline Delivered: 71.0 ml RENAL FUNCTION: Creatinine 0.7 RADIATION DOSE: CT Rad equipment meets quality standard of care and radiation dose reduction techniq ues were employed. CTDIvol: 5.7 - 6.5 mGy. DLP: 1334 mGy-cm.. LIMITATIONS: None. FINDINGS: LOWER CHEST: See separate report of the CT of the chest. LIVER: Small hemangioma in the right lobe. Small cysts are present. No hepatic metastases are prese nt. SPLEEN: Normal size. No focal lesions. PANCREAS: No masses. No significant calcifications. No adjacent inflammation or peripancreatic fluid collections. Pancreatic duct not dilated. GALLBLADDER: No identified stones by CT criteria. No inflammatory changes to suggest cholecystitis. ADRENAL GLANDS: No significant masses or asymmetry. RIGHT KIDNEY AND URETER: No solid masses. No significant calcifications. No hydronephrosis or hyd roureter. LEFT KIDNEY AND URETER: No solid masses. No significant calcifications. No hydronephrosis or hydr oureter. AORTA AND VESSELS: No aneurysm. No dissection. Renal arteries, SMA, celiac without stenosis. RETROPERITONEUM: No retroperitoneal adenopathy, hemorrhage or masses. BOWEL AND PERITONEAL CAVITY: Retained stool. No obvious bowel mass. Radiopaque suture is seen in th e sigmoid area. APPENDIX: Not identified. PELVIS: No mass. No free fluid. Normal bladder. Previously existing pelvic adenopathy has resolved. ABDOMINAL WALL: There is a 2 cm wide defect in the anterior abdominal wall on the right lower quadran t containing unobstructed bowel. Bilateral uncomplicated inguinal hernias. BONES: No significant or acute findings. OTHER: No other significant finding. IMPRESSION: Pelvic adenopathy is resolved. No abdominal or pelvic metastases are seen. Right lower quadrant ventral hernia versus ostomy. Bilateral uncomplicated inguinal hernias. TECHNICAL DOCUMENTATION: JOB ID: [id number] Quality ID # [id number]: Final reports with documentation of one or more dose reduction techniques (e.g., Au tomated exposure control, adjustment of the mA and/or kV according to patient size, use of iterative reconstruction technique) 2010 [employer]- All Rights Reserved Reading location - IP/workstation name: [email or web address]
--- NOTE | 2019-03-05 14:03 | RADIOLOGY REPORT (SQ) ---
EXAM DESCRIPTION: NM WHOLE BODY BONE SCAN COMPLETED DATE/TIME: 03/05/2019 1:38 pm REASON FOR STUDY: MALIGNANT NEOPLASM OF PROSTATE C61 MALIGNANT NEOPLASM OF PROSTATE COMPARISON: No available imaging studies for comparison. RADIONUCLIDE AND DOSE: 21.5 millicuries Tc99m HDP. The route of agent administration: Intravenous. ADDITIONAL DRUGS AND DOSES: None. TECHNIQUE: Routine delayed images at 3 post radionuclide injection acquired of the bony skeleton inc luding anterior and posterior whole-body projections and additional focused images as needed. LIMITATIONS: None. FINDINGS: BONES: Focal area of activity in the anterior left 4th rib. A few focal areas of activity in the maxillary region. Activity in the right wrist, not completely imaged. No other areas of abn ormal activity. KIDNEYS: Symmetric excretion without obstruction. OTHER: No other significant finding. IMPRESSION: 1. FOCAL AREA OF ACTIVITY IN THE ANTERIOR LEFT 4TH RIB. THIS MAY BE DUE TO PREVIOUS TRAUMA. 2. A FEW FOCAL AREAS OF ACTIVITY IN THE MAXILLARY REGION, PROBABLY DUE TO DENTAL AND/OR SINUS DISEASE . 3. ACTIVITY IN THE RIGHT WRIST MOST LIKELY DUE TO DEGENERATIVE CHANGE AND/OR PREVIOUS TRAUMA. 4. NO OTHER AREAS OF ABNORMAL SKELETAL ACTIVITY COMMENT: Quality measure 147: No available prior imaging studies for comparison TECHNICAL DOCUMENTATION: JOB ID: [id number] [employer]- All Rights Reserved Reading location - IP/workstation name: [email or web address]
== END ==
LOC: RAD 07:40
PROVIDERS: ATTEND Internal Medicine
DX: C61 Malignant neoplasm of prostate (principal); K40.20 Bilateral inguinal hernia, without obstruction or gangrene, not specified as recurrent
CPT/HCPCS: 82565; 78306; 71260; 74177; A9561; Q9969

== ENCOUNTER → 2019-03-07 | Outpatient (CLI) | payer MEDICARE ==
--- NOTE | 2019-03-07 16:03 | RADIOLOGY REPORT (SQ) ---
EXAM DESCRIPTION: INJECT VENOUS ACCESS DEVICE COMPLETED DATE/TIME: 03/07/2019 2:47 pm REASON FOR STUDY: PORT STUDY (Z45.2) Z45.2 ENCOUNTER FOR ADJUSTMENT AND MANAGEMENT OF VAD COMPARISON: None. FLUOROSCOPY TIME: 0.3 minutes. 1 images saved to PACS. TECHNIQUE: Fluoroscopic guided injection of non-ionic contrast through an existing port a catheter. LIMITATIONS: None. PROCEDURE: The patient was brought into the fluoroscopic room and placed supine on the table. The reva denise's port access site was prepped and draped in a sterile fashion. The port was then accessed by t radiological nurse. The catheter was then injected with 15 ml of non-ionic contrast. A series of f luoroscopic images demonstrate no extravasation from the port well or any evidence of fibrin sheath a t the end of the catheter. IMPRESSION: PATENT PORT A CATHETER WITHOUT ANY EVIDENCE OF EXTRAVASATION OR FIBRIN SHEATH. COMMENT: Quality ID 145: Final reports for procedures using fluoroscopy that document radiation exp osure indices, or exposure time and number of fluorographic images (if radiation exposure indices are not available) TECHNICAL DOCUMENTATION: JOB ID: [id number] [employer]- All Rights Reserved Reading location - IP/workstation name: [email or web address]
== END ==
LOC: RAD 13:57
PROVIDERS: ATTEND Physician Assistant Medical
DX: Z45.2 Encounter for adjustment and management of vascular access device (principal)
CPT/HCPCS: 36598; J1642

== ENCOUNTER 2019-06-05 07:59 | Day surgery (SDC) | payer MEDICARE ==
[2019-05-30 12:17] LABS: HEMATOCRIT 42.5 % (37.9-51.0); HEMOGLOBIN 14.2 g/dL (13.5-17.0); MEAN CORPUSCULAR HEMOGLOBIN 30.5 pg (27.0-33.4); MEAN CORPUSCULAR HGB CONC 33.5 g/dL (32.0-36.0); MEAN CORPUSCULAR VOLUME 91 fl (80-97); PLATELET COUNT 169 10^3/uL (150-450); RED BLOOD COUNT 4.67 10^6/uL (4.35-5.55); RED CELL DISTRIBUTION WIDTH 15.5 % (11.5-14.0); WHITE BLOOD COUNT 5.5 10^3/uL (4.0-10.5)
[2019-05-30 13:07] LABS: ANION GAP 10 (5-19); BLOOD UREA NITROGEN 15 mg/dL (7-20); CALCIUM 10.2 mg/dL (8.4-10.2); CARBON DIOXIDE 25 mmol/L (22-30); CHLORIDE 107 mmol/L (98-107); GLUCOSE 85 mg/dL (75-110); POTASSIUM 4.2 mmol/L (3.6-5.0)
--- NOTE | 2019-05-30 20:59 | EKG REPORT ---
SEVERITY:- NORMAL ECG - SINUS RHYTHM : Confirmed by: Yohan Guerrero 30-May-2019 20:58:51
[~2019-06-05 07:59] MED LIST changes: -CEFAZOLIN 1 GM/D5W RTU 1 GM/50 ML RTUPB IV ONE; -CEFAZOLIN 1 GM/D5W RTU 1 GM/50 ML RTUPB IV PRN; +CEFAZOLIN SODIUM 1 GM in DEXTROSE 5%-WATER 50 ML IV PRN
[2019-06-05] MEDS ORDERED: BUPIVACAINE HCL 0.25 % INJ/PF (2.5 MG/1 ML) 30 ML VIAL ONE (08:08)
[2019-06-05] MEDS ORDERED: PROPOFOL INJ 200 MG/20 ML VIAL IV ONE (08:41)
[2019-06-05] MEDS ORDERED: MIDAZOLAM 2 MG/2 ML INJ ONE (08:41)
[2019-06-05] MEDS ORDERED: FENTANYL CITRATE INJ/PF 100 MCG/2 ML AMPUL ONE ×2 (08:41→13:42)
[2019-06-05] MEDS ORDERED: SUCCINYLCHOLINE CHLORIDE INJ 200 MG/10 ML VIAL ONE (08:49)
[2019-06-05] MEDS ORDERED: ROCURONIUM BROMIDE INJ 50 MG/5 ML VIAL IV ONE (08:49)
[2019-06-05] MEDS ORDERED: KETOROLAC TROMETHAMINE 60 MG/2 ML SDV ONE (12:06)
[2019-06-05] MEDS ORDERED: DEXAMETHASONE SOD PHOSPHATE INJ 4 MG/1 ML VIAL ONE (12:06)
[2019-06-05] MEDS ORDERED: ONDANSETRON HCL INJ/PF 4 MG/2 ML SDV ONE (12:06)
[2019-06-05] MEDS ORDERED: OXYCODONE-ACETAMINOPHEN 5-325 MG TABLET PO PRN ×3 (12:39→13:27)
[2019-06-05] MEDS ORDERED: ONDANSETRON HCL INJ/PF 4 MG/2 ML SDV IV PRN (12:39)
[2019-06-05] MEDS ORDERED: DIPHENHYDRAMINE HCL 50 MG/ML VIAL IV PRN (12:39)
[2019-06-05] MEDS ORDERED: PROMETHAZINE HCL INJ 25 MG/1 ML VIAL IV PRN (12:39)
[2019-06-05] MEDS ORDERED: MEPERIDINE HCL/PF INJ 25 MG/1 ML DISP.SYRIN IV PRN (12:39)
[2019-06-05] MEDS ORDERED: FENTANYL CITRATE INJ/PF 100 MCG/2 ML AMPUL IV PRN ×3 (12:39)
[2019-06-05] MEDS ORDERED: BUPIVACAINE INJ/PF LIPOSOME/PF 266 MG/20 ML SDV ONE (12:46)
--- NOTE | 2019-06-05 13:26 | Operative Report ---
Nonrecallable Operative Report DATE OF SURGERY: 06/05/19 PREOPERATIVE DIAGNOSIS: incisional hernia POSTOPERATIVE DIAGNOSIS: Incisional hernia OPERATION: Incisional hernia repair, lysis of adhesions SURGEON: CHON BRODERICK ANESTHESIA: GA TISSUE REMOVED OR ALTERED: None COMPLICATIONS: None ESTIMATED BLOOD LOSS: 10 cc INTRAOPERATIVE FINDINGS: See dictation PROCEDURE: Patient was brought to the operating awake alert stable condition placed in the upper table supine position induced under general anesthesia and intubated. The abdomen was prepped and draped in usual sterile fashion. After appropriate timeout and site verification a transverse incision was made over the hernia defect in the right mid abdomen over an old port site. Dissection was then carried down through subcutaneous tissue with Bovie cautery until we reached the hernia sac which was open there was a number of loops of small bowel that were adhesed to the anterior abdominal fascia and the hernia sac which would required sharp dissection to mobilize the small bowel. After mobilization small bowel allowed to drop back in the abdominal cavity the fascial defect was only approximately 3 cm in diameter it was closed primarily with interrupted placed #2 Vicryl sutures placed in a Smead Armendariz fashion. The subcutaneous tissue was then reapproximated with interrupted 3-0 Vicryl and skin was reapproximated with standard skin clips. Estimated blood loss for the procedure is less than 10 cc sponge needle counts correct x2 the patient was awakened in the operative extubated transferred recovery in stable condition no complications
--- NOTE | 2019-06-05 13:27 | Discharge Summary ---
Discharge Summary (SDC) - Discharge Final Diagnosis: Incisional hernia Date of Surgery: 06/05/19 Discharge Date: 06/05/19 Condition: Good Discharge Diet: As Tolerated Discharge Activity: Activity As Tolerated, No Lifting Over 10 Pounds Report the Following to Your Physician Immediately: Shortness of Breath, Nausea, Vomiting, Fever over 101 Degrees - Patient needs a follow-up appointment with me in 7 to 10 days after discharge, Redness
[2019-06-05] MEDS ORDERED: OXYCODONE-ACETAMINOPHEN 5-325 MG TABLET ONE (14:13)
[2019-06-05 16:44] VITALS: BP 141/90
== END 2019-06-05 15:15 | disposition home or self-care (01) ==
LOC: OROUT 07:59
PROVIDERS: ATTEND Surgery
DX: K43.2 Incisional hernia without obstruction or gangrene (principal); K66.0 Peritoneal adhesions (postprocedural) (postinfection); F17.210 Nicotine dependence, cigarettes, uncomplicated; Z85.038 Personal history of other malignant neoplasm of large intestine; Z85.46 Personal history of malignant neoplasm of prostate
CPT/HCPCS: 49560; 93005; 36415; 85027; 80048; 93010; 00832; J2250; J0690; J3490; J1100; J1885; J3010; A9270; J0330; J2405; J7060; J2704; C9290; 832

== ENCOUNTER → 2019-10-28 | Outpatient (CLI) | payer MEDICARE ==
--- NOTE | 2019-10-28 11:05 | RADIOLOGY REPORT (SQ) ---
EXAM DESCRIPTION: CT CHEST WITH IMAGES COMPLETED DATE/TIME: 10/28/2019 8:05 am REASON FOR STUDY: PROSTATE CANCER C61 MALIGNANT NEOPLASM OF PROSTATE COMPARISON: 05/05/2019 TECHNIQUE: CT scan of the chest performed using helical scanning technique with dynamic intravenous contrast injection. Images reviewed with lung, soft tissue and bone windows. Reconstructed coronal and sagittal MPR and MIP images reviewed. All images stored on PACS. All CT scanners at this facility use dose modulation, iterative reconstruction, and/or weight based d osing when appropriate to reduce radiation dose to as low as reasonably achievable (ALARA). [facility]: Dose Right [facility]: CareDose [facility]: Dose Right [facility]: Teradose 4D [facility]: [employer] RENAL FUNCTION: GFR > 60. RADIATION DOSE: CT Rad equipment meets quality standard of care and radiation dose reduction techniq ues were employed. CTDIvol: 7.1 - 7.6 mGy. DLP: 1147 mGy-cm. . LIMITATIONS: None. FINDINGS: LUNGS AND PLEURA: Stable apical scarring and less than 6 mm calcified granuloma left upper lobe. No suspicious nodules or effusions. HILAR AND MEDIASTINAL STRUCTURES: No identified masses or abnormal nodes. HEART AND VASCULAR STRUCTURES: No aneurysm or dissection. No central pulmonary emboli. No pericardi al effusion. HARDWARE: None in the chest. UPPER ABDOMEN: See separate report of the CT of the abdomen. THYROID AND OTHER SOFT TISSUES: No masses. No adenopathy. BONES: No significant finding. OTHER: Left-sided port. IMPRESSION: No evidence of metastatic disease in the chest. TECHNICAL DOCUMENTATION: JOB ID: [id number] Quality ID # 436: Final reports with documentation of one or more dose reduction techniques (e.g., Au tomated exposure control, adjustment of the mA and/or kV according to patient size, use of iterative reconstruction technique) 2010 [employer]- All Rights Reserved Reading location - IP/workstation name: [email or web address]
--- NOTE | 2019-10-28 11:15 | RADIOLOGY REPORT (SQ) ---
EXAM DESCRIPTION: CT ABD/PELVIS WITH IV ONLY IMAGES COMPLETED DATE/TIME: 10/28/2019 8:05 am REASON FOR STUDY: PROSTATE CANCER C61 MALIGNANT NEOPLASM OF PROSTATE COMPARISON: None. TECHNIQUE: CT scan of the abdomen and pelvis performed using helical scanning technique with dynamic intravenous contrast injection. No oral contrast. Images reviewed with lung, soft tissue, and bone windows. Reconstructed coronal and sagittal MPR images reviewed. Delayed images for evaluation of the urinary system also acquired. All images stored on PACS. All CT scanners at this facility use dose modulation, iterative reconstruction, and/or weight based d osing when appropriate to reduce radiation dose to as low as reasonably achievable (ALARA). [facility]: Dose Right [facility]: CareDose [facility]: Dose Right [facility]: Teradose 4D [facility]: [employer] RENAL FUNCTION: GFR > 60. RADIATION DOSE: . LIMITATIONS: None. FINDINGS: LOWER CHEST: See separate report of the CT of the chest. LIVER: Stable cysts. Stable hemangioma posterior segment right lobe. SPLEEN: Normal size. No focal lesions. PANCREAS: No masses. No significant calcifications. No adjacent inflammation or peripancreatic fluid collections. Pancreatic duct not dilated. GALLBLADDER: No identified stones by CT criteria. No inflammatory changes to suggest cholecystitis. ADRENAL GLANDS: No significant masses or asymmetry. RIGHT KIDNEY AND URETER: No solid masses. No significant calcifications. No hydronephrosis or hyd roureter. LEFT KIDNEY AND URETER: No solid masses. 3 mm lower pole calculus. No hydronephrosis or hydrouret er. AORTA AND VESSELS: No aneurysm. RETROPERITONEUM: Stable small retroperitoneal nodes measuring up to about 1 cm in short axis. These were much larger on PET 10/08/2018. BOWEL AND PERITONEAL CAVITY: Anastomosis sigmoid colon. No dilated loops. No ascites. APPENDIX: Not visualized. PELVIS: No mass. No free fluid. Normal bladder. ABDOMINAL WALL: Stable umbilical hernia containing nondilated small bowel. BONES: No significant or acute findings. OTHER: No other significant finding. IMPRESSION: Stable abdomen pelvis. No evidence of metastatic disease. TECHNICAL DOCUMENTATION: JOB ID: [id number] Quality ID # 436: Final reports with documentation of one or more dose reduction techniques (e.g., Au tomated exposure control, adjustment of the mA and/or kV according to patient size, use of iterative reconstruction technique) 2010 [employer]- All Rights Reserved Reading location - IP/workstation name: [email or web address]
--- NOTE | 2019-10-28 12:31 | RADIOLOGY REPORT (SQ) ---
EXAM DESCRIPTION: NM WHOLE BODY BONE SCAN IMAGES COMPLETED DATE/TIME: 10/28/2019 11:58 am REASON FOR STUDY: PROSTATE CANCER C61 MALIGNANT NEOPLASM OF PROSTATE COMPARISON: 03/05/2019 RADIONUCLIDE AND DOSE: 20 millicuries Tc99m MDP. The route of agent administration: Intravenous. ADDITIONAL DRUGS AND DOSES: None. TECHNIQUE: Routine delayed images at 3 hours post radionuclide injection acquired of the bony skelet on including anterior and posterior whole-body projections and additional focused images as needed. LIMITATIONS: None. FINDINGS: BONES: Once again there is activity in the region of the maxilla there is no significant a bnormal skeletal uptake otherwise. KIDNEYS: Symmetric excretion without obstruction. OTHER: No other significant finding. IMPRESSION: NORMAL BONE SCAN. RECOMMENDATION: The overall appearance of the scan does not suggest metastatic disease to bone. Act ivity in the maxilla may be secondary to dental disease or sinus disease. COMMENT: Quality measure 147: Current bone scan is compared with any available plain radiographs, p rior bone scans, and CT/MRI. TECHNICAL DOCUMENTATION: JOB ID: [id number] 2010 [employer]- All Rights Reserved Reading location - IP/workstation name: [email or web address]
== END ==
LOC: RAD 07:30
PROVIDERS: ATTEND Physician Assistant Medical
DX: C61 Malignant neoplasm of prostate (principal)
CPT/HCPCS: 82565; 78306; 71260; 74177; A9503; Q9969

== ENCOUNTER → 2020-06-08 | Outpatient (CLI) | payer MEDICARE ==
--- NOTE | 2020-06-08 12:01 | RADIOLOGY REPORT (SQ) ---
EXAM DESCRIPTION: CT CHEST WITH IMAGES COMPLETED DATE/TIME: 06/08/2020 9:11 am REASON FOR STUDY: (C61)MALIGNANT NEOPLASM OF PROSTATE C61 MALIGNANT NEOPLASM OF PROSTATE COMPARISON: 10/27/2028 TECHNIQUE: CT scan of the chest performed using helical scanning technique with dynamic intravenous contrast injection. Images reviewed with lung, soft tissue and bone windows. Reconstructed coronal and sagittal MPR and MIP images reviewed. All images stored on PACS. All CT scanners at this facility use dose modulation, iterative reconstruction, and/or weight based d osing when appropriate to reduce radiation dose to as low as reasonably achievable (ALARA). [facility]: Dose Right [facility]: CareDose [facility]: Dose Right [facility]: Teradose 4D [facility]: [employer] CONTRAST TYPE AND DOSE: contrast/concentration: Isovue 350.00 mmol/ml; Total Contrast Delivered: 95. 0 ml; Total Saline Delivered: 42.0 ml RENAL FUNCTION: GFR > 60. RADIATION DOSE: CT Rad equipment meets quality standard of care and radiation dose reduction techniq ues were employed. CTDIvol: 6.7 - 6.9 mGy. DLP: 1020 mGy-cm. . LIMITATIONS: None. FINDINGS: LUNGS AND PLEURA: Stable apical scarring and less than 6 mm ground-glass nodules. Small c alcified granuloma left upper lobe. No new or suspicious nodules. No effusions. HILAR AND MEDIASTINAL STRUCTURES: No identified masses or abnormal nodes. HEART AND VASCULAR STRUCTURES: No aneurysm or dissection. No central pulmonary emboli. No pericardi al effusion. HARDWARE: None in the chest. UPPER ABDOMEN: See separate report of the CT of the abdomen. THYROID AND OTHER SOFT TISSUES: No masses. No adenopathy. BONES: No significant finding. OTHER: Stable position of left-sided port. IMPRESSION: No evidence of metastatic disease. TECHNICAL DOCUMENTATION: JOB ID: [id number] Quality ID # 436: Final reports with documentation of one or more dose reduction techniques (e.g., Au tomated exposure control, adjustment of the mA and/or kV according to patient size, use of iterative reconstruction technique) 2010 [employer]- All Rights Reserved Reading location - IP/workstation name: [email or web address]
--- NOTE | 2020-06-08 12:07 | RADIOLOGY REPORT (SQ) ---
EXAM DESCRIPTION: CT ABD/PELVIS WITH IV ONLY IMAGES COMPLETED DATE/TIME: 06/08/2020 9:11 am REASON FOR STUDY: (C61)MALIGNANT NEOPLASM OF PROSTATE C61 MALIGNANT NEOPLASM OF PROSTATE COMPARISON: 10/27/2028 TECHNIQUE: CT scan of the abdomen and pelvis performed using helical scanning technique with dynamic intravenous contrast injection. No oral contrast. Images reviewed with lung, soft tissue, and bone windows. Reconstructed coronal and sagittal MPR images reviewed. Delayed images for evaluation of the urinary system also acquired. All images stored on PACS. All CT scanners at this facility use dose modulation, iterative reconstruction, and/or weight based d osing when appropriate to reduce radiation dose to as low as reasonably achievable (ALARA). [facility]: Dose Right [facility]: CareDose [facility]: Dose Right [facility]: Teradose 4D [facility]: [employer] RENAL FUNCTION: GFR > 60. RADIATION DOSE: . LIMITATIONS: None. FINDINGS: LOWER CHEST: See separate report of the CT of the chest. LIVER: Stable cysts and hemangiomas. SPLEEN: Normal size. No focal lesions. PANCREAS: No masses. No significant calcifications. No adjacent inflammation or peripancreatic fluid collections. Pancreatic duct not dilated. GALLBLADDER: No identified stones by CT criteria. No inflammatory changes to suggest cholecystitis. ADRENAL GLANDS: No significant masses or asymmetry. RIGHT KIDNEY AND URETER: No solid masses. No significant calcifications. No hydronephrosis or hyd roureter. LEFT KIDNEY AND URETER: No solid masses. 2 mm stone lower pole. No hydronephrosis or hydroureter. AORTA AND VESSELS: No aneurysm. RETROPERITONEUM: Stable small lymph nodes measuring up to 1 cm short axis. BOWEL AND PERITONEAL CAVITY: No masses or inflammatory changes. No free fluid or peritoneal masses. APPENDIX: Not visualized. PELVIS: No mass. No free fluid. Normal bladder. ABDOMINAL WALL: Small bilateral inguinal hernias. Small umbilical hernia containing nondilated small bowel. BONES: Nothing acute. OTHER: No other significant finding. IMPRESSION: Stable chest, abdomen and pelvis. No evidence of metastatic disease. TECHNICAL DOCUMENTATION: JOB ID: [id number] Quality ID # 436: Final reports with documentation of one or more dose reduction techniques (e.g., Au tomated exposure control, adjustment of the mA and/or kV according to patient size, use of iterative reconstruction technique) 2010 [employer]- All Rights Reserved Reading location - IP/workstation name: [email or web address]
== END ==
LOC: RAD 08:35
PROVIDERS: ATTEND Physician Assistant Medical
DX: C61 Malignant neoplasm of prostate (principal)
CPT/HCPCS: 71260; 74177; 82565